=== PATIENT | male | born 1955 | race Caucasian/White ===

== ENCOUNTER 2018-04-23 14:23 | Emergency (ER) | payer OTHER, SELFPAY ==
[2018-04-23] VITALS (10 sets, daily range): BP systolic 123–149; BP diastolic 64–108; PULSE 50–67; RESP 8–24; TEMP 36.4; O2SAT 92–100; BMI 30.8
--- NOTE | 2018-04-23 14:36 | ED_ITS ---
HPI - Chest Pain <Devonte Barnes MD - Last Filed: 04/24/18 07:11> General Chief Complaint: Chest Pain Stated Complaint: CHEST PAIN Time Seen by Provider: 04/23/18 14:28 Source: patient and EMS Mode of arrival: EMS Limitations: no limitations History of Present Illness HPI narrative: 63 M hx DM 2 had sudden onset L side sharp chest pain radiating to L arm with associated SOB and Lightheadedness after hearing of a friend's today. Had rough coughing episode which caused sharp pain in his chest and R groin. No cardiac history. Given ASA, morphine, nitro by EMS with no signficiant relief. There is a signficant anxiety component causing hyperventilation and distress. No recent illness, fever, chills, swelling, urinary complaints. Patient states its been a long time since his last stress test. PCP Dr. Shemar Leigh Related Data Home Medications Medication Instructions Recorded Confirmed CA PANTOTHENATE/FOLIC ACID/VIT 1 tab PO QDAY #0 06/26/13 (MULTIVITAMIN) [epclusa] #0 02/01/17 prazosin 3 mg PO HS #0 02/01/17 diazepam 5 mg PO PRN PRN #0 05/13/17 lorazepam [Ativan] 2 mg PO PRN PRN #0 05/13/17 meloxicam 7.5 - 15 mg PO QDAY #0 05/13/17 omeprazole 20 mg PO QDAY #0 05/13/17 ribavirin 200 mg PO HS #0 05/13/17 ribavirin 400 mg PO QDAY #0 05/13/17 tizanidine 2 mg PO #0 05/13/17 Previous Rx's Medication Instructions Recorded fentanyl 25 mcg TOPICAL Q72H #10 patch 02/02/17 loperamide 0 mg PO SEE INSTRUCTIONS #20 cap 05/13/17 ondansetron [Zofran ODT] 4 mg SUBLINGUAL Q6HP PRN #10 odt 05/13/17 hydromorphone [Dilaudid] 2 mg PO Q6HP PRN #10 tab 09/20/17 Allergies Allergy/AdvReac Type Severity Reaction Status Date / Time hydrocodone [From VICODIN] Allergy Unknown Verified 04/23/18 15:54 iodine [IODINE] Allergy Unknown Verified 04/23/18 15:54 acetaminophen [From VICODIN] AdvReac Unknown Verified 04/23/18 15:54 Review of Systems <Devonte Barnes MD - Last Filed: 04/24/18 07:11> Constitutional Denies chills, Denies fever(s), Denies lethargy and Denies weakness Eyes Denies change in vision, Denies eye discharge, Denies irritation and Denies loss of vision Cardiovascular Reports chest pain, Denies irregular heart rhythm, Reports lightheadedness, Denies palpitations, Denies dyspnea, Denies dyspnea on exertion and Denies orthopnea Respiratory Reports cough, Denies dyspnea, Denies dyspnea on exertion and Denies wheezing Gastrointestinal Gastrointestinal: Denies abdominal pain, Denies change in bowel habits, Denies diarrhea, Denies nausea and Denies vomiting Genitourinary Denies hematuria, Denies flank pain, Denies urinary incontinence and Denies urinary urgency Musculoskeletal Denies back pain, Denies muscle weakness, Denies numbness and Denies tingling Neurologic Denies loss of vision, Denies numbness, Denies tingling and Denies weakness Endocrine Denies palpitations Hematologic/Lymphatic Denies easy bruising Allergic/Immunologic Denies wheezing Exam <Devonte Barnes MD - Last Filed: 04/24/18 07:11> Initial Vital Signs Initial Vital Signs: Vital Signs Temperature 97.5 F L 04/23/18 14:35 Pulse Rate 67 04/23/18 14:35 Respiratory Rate 15 04/23/18 14:35 Blood Pressure 138/108 H 04/23/18 14:35 Pulse Oximetry 97 04/23/18 14:35 Const General: in distress and anxious Nutritional Appearance: overweight Orientation: alert, awake and oriented x3 [facility] Head: normocephalic and atraumatic Ears: external ears normal and TM's normal bilaterally Nose: external nose normal and No nasal discharge Face and sinus: sinuses nontender, face symmetric, no sinus tenderness and No dry mucous membranes Mouth: oral mucosae normal and moist mucous membranes Teeth and gingiva: dentition normal Throat: tonsils normal and uvula midline Neck Neck: normal visual inspection, trachea midline, No lymphadenopathy, No midline deformity and No JVD Lymphatic: No lymphedema Resp Effort & Inspection: normal respiratory effort, able to speak in complete sentences, no respiratory distress and no use of accessory muscles Auscultation: clear to auscultation bilaterally, no rales, no rhonchi and no wheezes Cardio Rate: regular rate Rhythm: regular rhythm Heart Sounds: no click, no gallops, no murmurs and no rubs Pulses: normal peripheral pulses GI Inspection: non-distended Palpation: soft, no hepatosplenomegaly, No guarding, No pulsatile mass and tender (R groin tenderness. No mass or hernia defect felt.) Auscultation: normal bowel sounds Skin General: no rashes or lesions noted, No jaundice and No petechiae Neuro General: alert, oriented x3, gait normal and no focal motor deficits Speech: speech normal Extrem General: full ROM, no clubbing, cyanosis or edema, no pedal edema and no calf tenderness <Jose D Hutchinson DO - Last Filed: 04/23/18 21:24> Initial Vital Signs Initial Vital Signs: Vital Signs Temperature 97.5 F L 04/23/18 14:35 Pulse Rate 67 04/23/18 14:35 Respiratory Rate 15 04/23/18 14:35 Blood Pressure 138/108 H 04/23/18 14:35 Pulse Oximetry 97 04/23/18 14:35 Course <Devonte Barnes MD - Last Filed: 04/24/18 07:11> Orders Ordered: Discontinued Medications Hydromorphone HCl (Dilaudid) 1 mg IV NOW ONE Stop: 04/23/18 20:22 Last Admin: 04/23/18 20:31 Dose: 1 mg Sodium Chloride (Normal Saline 0.9%) 1,000 mls @ 150 mls/hr IV CONT KERVIN Last Infusion: 04/23/18 18:55 Dose: 0 mls/hr Admin: 04/23/18 15:15 Dose: 150 mls/hr Ketorolac Tromethamine (Toradol) 30 mg IV NOW ONE Stop: 04/23/18 16:55 Last Admin: 04/23/18 17:13 Dose: 30 mg Lorazepam (Ativan) 0.5 mg IV NOW ONE Stop: 04/23/18 14:35 Last Admin: 04/23/18 15:14 Dose: 0.5 mg Lorazepam (Ativan) 1 mg IV NOW ONE Stop: 04/23/18 16:54 Last Admin: 04/23/18 17:13 Dose: 1 mg Morphine Sulfate (Morphine) 6 mg IV NOW ONE Stop: 04/23/18 14:51 Last Admin: 04/23/18 15:23 Dose: 6 mg Morphine Sulfate (Morphine) 6 mg IV NOW ONE Stop: 04/23/18 15:23 Last Admin: 04/23/18 17:17 Dose: Morphine Sulfate (Morphine) 6 mg IV NOW ONE Stop: 04/23/18 16:54 Last Admin: 04/23/18 17:14 Dose: 6 mg Ondansetron HCl (Zofran) 4 mg IV NOW ONE Stop: 04/23/18 14:35 Last Admin: 04/23/18 15:14 Dose: 4 mg Vital Signs - 8 hr 04/23/18 14:35 04/23/18 14:58 04/23/18 15:06 Temperature 97.5 F L Pulse Rate 67 61 Respiratory Rate 15 19 Blood Pressure 138/108 H Blood Pressure [Left Arm] 145/71 H Blood Pressure [Right Arm] 132/69 H Pulse Oximetry 97 97 04/23/18 16:04 04/23/18 16:30 04/23/18 17:44 Temperature Pulse Rate 62 64 50 L Respiratory Rate 24 22 9 L Blood Pressure Blood Pressure [Left Arm] Blood Pressure [Right Arm] 123/64 H 137/71 H 132/82 H Pulse Oximetry 97 99 92 04/23/18 18:03 04/23/18 19:00 04/23/18 20:00 Temperature Pulse Rate 54 L 53 L 52 L Respiratory Rate 8 L 14 10 L Blood Pressure Blood Pressure [Left Arm] Blood Pressure [Right Arm] 136/74 H 144/85 H 147/82 H Pulse Oximetry 96 99 100 04/23/18 20:44 Temperature Pulse Rate 59 L Respiratory Rate 15 Blood Pressure 149/84 H Blood Pressure [Left Arm] Blood Pressure [Right Arm] Pulse Oximetry 99 <Jose D Hutchinson DO - Last Filed: 04/23/18 21:24> Orders Ordered: Discontinued Medications Hydromorphone HCl (Dilaudid) 1 mg IV NOW ONE Stop: 04/23/18 20:22 Last Admin: 04/23/18 20:31 Dose: 1 mg Sodium Chloride (Normal Saline 0.9%) 1,000 mls @ 150 mls/hr IV CONT KERVIN Last Infusion: 04/23/18 18:55 Dose: 0 mls/hr Admin: 04/23/18 15:15 Dose: 150 mls/hr Ketorolac Tromethamine (Toradol) 30 mg IV NOW ONE Stop: 04/23/18 16:55 Last Admin: 04/23/18 17:13 Dose: 30 mg Lorazepam (Ativan) 0.5 mg IV NOW ONE Stop: 04/23/18 14:35 Last Admin: 04/23/18 15:14 Dose: 0.5 mg Lorazepam (Ativan) 1 mg IV NOW ONE Stop: 04/23/18 16:54 Last Admin: 04/23/18 17:13 Dose: 1 mg Morphine Sulfate (Morphine) 6 mg IV NOW ONE Stop: 04/23/18 14:51 Last Admin: 04/23/18 15:23 Dose: 6 mg Morphine Sulfate (Morphine) 6 mg IV NOW ONE Stop: 04/23/18 15:23 Last Admin: 04/23/18 17:17 Dose: Morphine Sulfate (Morphine) 6 mg IV NOW ONE Stop: 04/23/18 16:54 Last Admin: 04/23/18 17:14 Dose: 6 mg Ondansetron HCl (Zofran) 4 mg IV NOW ONE Stop: 04/23/18 14:35 Last Admin: 04/23/18 15:14 Dose: 4 mg Reevaluation(s) Reevaluation #1: Patient interviewed and examined by myself independently and I agree with Dr. Barnes's assessment and plan. Multiple troponins are negative 7 hours in and EKG shows no signs of ischemia. Regarding RLQ pain CT Abd/Pelvis was unremarkable. One final EKG to be obtained prior to DC Time: 20:26 Vital Signs - 8 hr 04/23/18 14:35 04/23/18 14:58 04/23/18 15:06 Temperature 97.5 F L Pulse Rate 67 61 Respiratory Rate 15 19 Blood Pressure 138/108 H Blood Pressure [Left Arm] 145/71 H Blood Pressure [Right Arm] 132/69 H Pulse Oximetry 97 97 04/23/18 16:04 04/23/18 16:30 04/23/18 17:44 Temperature Pulse Rate 62 64 50 L Respiratory Rate 24 22 9 L Blood Pressure Blood Pressure [Left Arm] Blood Pressure [Right Arm] 123/64 H 137/71 H 132/82 H Pulse Oximetry 97 99 92 04/23/18 18:03 04/23/18 19:00 04/23/18 20:00 Temperature Pulse Rate 54 L 53 L 52 L Respiratory Rate 8 L 14 10 L Blood Pressure Blood Pressure [Left Arm] Blood Pressure [Right Arm] 136/74 H 144/85 H 147/82 H Pulse Oximetry 96 99 100 04/23/18 20:44 Temperature Pulse Rate 59 L Respiratory Rate 15 Blood Pressure 149/84 H Blood Pressure [Left Arm] Blood Pressure [Right Arm] Pulse Oximetry 99 MDM - Chest Pain <Devonte Barnes MD - Last Filed: 04/24/18 07:11> Lab Data Result diagrams: 04/23/18 Unknown 04/23/18 Unknown Lab Results 04/23/18 04/23/18 04/23/18 Range/Units 17:55 Unknown Unknown WBC 6.7 (4.5-11.0) X10^3/uL RBC 4.21 L (4.5-5.9) X10^6/uL Hgb 13.3 L (13.5-17.5) g/dL Hct 38.8 L (41-53) % MCV 92.1 (80-100) fL MCH 31.6 (26-34) PG MCHC 34.3 (30-36) % RDW 14.5 (11.6-14.8) % Plt Count 127 L (150-400) X10^3/uL Neut % (Auto) 45.7 L (50-75) % Lymph % (Auto) 44.3 H (25-40) % Hudson % (Auto) 8.7 (3-14) % Eos % (Auto) 0.9 L (2-4) % Baso % (Auto) 0.4 (0-2) % Neut # (Auto) 3100 (4837-9536) /uL Sodium 143 (137-145) mmol/L Potassium 3.9 (3.4-5.1) mmol/L Chloride 107.0 (98-107) mmol/L Carbon Dioxide 21.0 L (22-32) mmol/L BUN 19.0 (9-20) mg/dL Creatinine 0.90 (0.66-1.25) mg/dL Estimated GFR > 60.0 (>60) mL/min BUN/Creatinine Ratio 21.1 (6-22) Glucose 107 (80-110) mg/dL Calcium 9.1 (8.4-10.2) mg/dL Total Bilirubin 0.7 (0.2-1.3) mg/dL AST 26 (17-59) IU/L ALT 25 (21-72) IU/L Alkaline Phosphatase 49 (38-126) U/L Total Creatine Kinase 107 119 (55-170) U/L CK-MB (CK-2) 0.90 0.86 (<2.37) ng/mL CK-MB (CK-2) Rel Index 0.8 L 0.7 L (1.5-5.0) % Troponin I < 0.012 < 0.012 (0.01-0.034) ng/mL Total Protein 7.8 (6.3-8.2) g/dL Albumin 4.5 (3.5-5.0) g/dL Globulin 3.3 (1.7-4.1) g/dL Albumin/Globulin Ratio 1.4 (1.0-2.8) Lipase 81 (23-300) U/L Imaging Data Chest x-ray: Radiologist's impression: Patient: Armin Martinez WMR#: [id number] : 7Acct:[id number] Age/Sex: 63 / MDate of Service: 04/23/18 Loc: ED Accession Number: [id number] Procedure: XR chest 2V Ordering Provider: Devonte Barnes M.D. PROCEDURE: XR CHEST 2V INDICATIONS: chest pain TECHNIQUE: 2 views of the chest were acquired. COMPARISON: [facility], CHEST 1 VIEW, 08/28/2015, 4:19. [facility], CHEST 1 VIEW, 02/01/2017, 9:20. FINDINGS: Surgical changes and devices: None. Lungs and pleura: No pleural effusions or pneumothorax. Lungs are clear. Mediastinum: Mediastinal contours are normal. Heart size is normal. Bones and chest wall: No suspicious bony abnormalities. Soft tissues appear unremarkable. IMPRESSION: No acute cardiopulmonary disease process. Dictated by: Yumiko Munoz MD, PhD on 04/23/2018 at 13:56 Approved by: Yumiko Munoz MD, PhD on 04/23/2018 at 13:57 ECG Data Interpretation: Sinus rhythm HR [address]/Tw changes No ectopy IL intervals WNL MDM Narrative Medical decision making narrative: Patient distraught, and clutching chest complaining of sharp chest pain. Given multiple doses of morphine and ativan in ED. Patient responds to medications and then returns to being in distress requiring repeat dosing. Troponins negative x2 without EKG changes. For the duration of patient's complaints, there would likely have been an elevation in cardiac enzymes if pain were cardiac related. His inguinal pain may be a tear, but there is no bowel felt in a hernia defect, and there is low suspicion for any requirement for urgent intervention. Imaging is pending. Case was discussed with Dr. Hutchinson. <Jose D Hutchinson, DO - Last Filed: 04/23/18 21:24> Differential Diagnosis Likely pneumothorax, stable angina, unstable angina pectoris, atypical chest pain, st elevation myocardial infarction, costochondritis and chest pain Medical Records Data Attestation: I reviewed the patient's medical records. Lab Data Attestation: I reviewed the patient's lab results. Lab Results 04/23/18 04/23/18 04/23/18 Range/Units 17:55 Unknown Unknown WBC 6.7 (4.5-11.0) X10^3/uL RBC 4.21 L (4.5-5.9) X10^6/uL Hgb 13.3 L (13.5-17.5) g/dL Hct 38.8 L (41-53) % MCV 92.1 (80-100) fL MCH 31.6 (26-34) PG MCHC 34.3 (30-36) % RDW 14.5 (11.6-14.8) % Plt Count 127 L (150-400) X10^3/uL Neut % (Auto) 45.7 L (50-75) % Lymph % (Auto) 44.3 H (25-40) % Hudson % (Auto) 8.7 (3-14) % Eos % (Auto) 0.9 L (2-4) % Baso % (Auto) 0.4 (0-2) % Neut # (Auto) 3100 (2956-0553) /uL Sodium 143 (137-145) mmol/L Potassium 3.9 (3.4-5.1) mmol/L Chloride 107.0 (98-107) mmol/L Carbon Dioxide 21.0 L (22-32) mmol/L BUN 19.0 (9-20) mg/dL Creatinine 0.90 (0.66-1.25) mg/dL Estimated GFR > 60.0 (>60) mL/min BUN/Creatinine Ratio 21.1 (6-22) Glucose 107 (80-110) mg/dL Calcium 9.1 (8.4-10.2) mg/dL Total Bilirubin 0.7 (0.2-1.3) mg/dL AST 26 (17-59) IU/L ALT 25 (21-72) IU/L Alkaline Phosphatase 49 (38-126) U/L Total Creatine Kinase 107 119 (55-170) U/L CK-MB (CK-2) 0.90 0.86 (<2.37) ng/mL CK-MB (CK-2) Rel Index 0.8 L 0.7 L (1.5-5.0) % Troponin I < 0.012 < 0.012 (0.01-0.034) ng/mL Total Protein 7.8 (6.3-8.2) g/dL Albumin 4.5 (3.5-5.0) g/dL Globulin 3.3 (1.7-4.1) g/dL Albumin/Globulin Ratio 1.4 (1.0-2.8) Lipase 81 (23-300) U/L Imaging Data CT scan - abdomen: Radiologist's impression: PROCEDURE: CT ABDOMEN PELVIS W CON INDICATIONS: RLQ/pelvic pain TECHNIQUE: After the administration of oral and intravenous contrast, 5 mm thick sections acquired from the diaphragms to the symphysis. 5 mm thick coronal and sagittal reformats were performed. For radiation dose reduction, the following was used: automated exposure control, adjustment of mA and/or kV according to patient size. COMPARISON: [facility], CT, ABDOMEN/PELVIS WITH CONTRAST, 05/13/2017, 13: 25. FINDINGS: Image quality: Excellent. ABDOMEN: Lung bases: There is mild dependent atelectasis. Heart size is normal. Solid organs: Liver is normal in size and enhancement. Gallbladder appears within normal limits without calcified gallstones. Biliary system is non-dilated. Pancreas enhances normally. Spleen is normal in size and enhancement. No adrenal nodules. Kidneys demonstrate no hydronephrosis. There is a left renal cortical cyst within the inferior pole. A small peripheral hypodensity is redemonstrated within the inferior pole of the right kidney which is too small to characterize but likely represents a cyst. Peritoneum and bowel: Stomach, small bowel, and colon loops are normal in caliber and wall thickness. The appendix is normal in appearance. There is colonic diverticulosis without acute diverticulitis. No free fluid or air. Nodes and vessels: No retroperitoneal or mesenteric adenopathy. Aorta and inferior vena cava are normal in caliber. Miscellaneous: No ventral hernias. PELVIS: Genitourinary: There is mild concentric wall thickening of an incompletely distended urinary bladder. Miscellaneous: No inguinal hernias or adenopathy. Bones: No suspicious bony lesions. No vertebral body compression fractures. IMPRESSION: 1. No definite acute intra-abdominal abnormality to correlate with patient's right lower quadrant pain. Specifically, no evidence of appendicitis. 2. Diverticulosis without acute diverticulitis. Dictated by: Sarwat Gaston M.D. on 04/23/2018 at 20:02 Approved by: Sarwat Gaston M.D. on 04/23/2018 at 20:05 ECG Data Attestation: I personally reviewed and interpreted this ECG as follows: Prior ECG tracings: available for review Interpretation: Repeat EKG 2030 normal sinus rhythm (slightly bradycardic) with a rate of 54. No ST segmental elevation or depression, no T-wave abnormalities MDM Narrative Medical decision making narrative: Patient presents with sharp and stabbing left -sided chest pain after receiving bad news regarding a friend's untimely . He admittedly is quite anxious and complains of rapid breathing and anxiety. He has no cardiac history. He has had multiple troponins as well as repeat EKGs showing no suggestion ischemia. Imaging was negative for is groin pain Discharge Plan Departure Patient Disposition: Home, Self-Care Clinical Impression: Deep groin pain, Atypical chest pain Discharge Date/Time: 04/23/18 20:52 Interventions: ED Discharge Assessment Last Done: 04/23/18 20:44 Instructions: DI for Atypical Chest Pain Activity Restrictions/Additional Instructions: There is no evidence of an emergent or life threatening illness at this time, but follow up with your doctor in 1-2 days is recommended nonetheless to continue to rule out serious underlying causes of your symptoms. Please call the office for an appointment. Please return to the Emergency Department for any worsening or persistent symptoms. Please continue to take medications as directed. Prescriptions: No Action CA PANTOTHENATE/FOLIC ACID/VIT (MULTIVITAMIN) 1 tab PO QDAY Qty: 0 RF: 0 [epclusa] Qty: 0 RF: 0 prazosin 1 MG capsule 3 mg PO HS Qty: 0 RF: 0 fentanyl 25 MCG/HR patch 72 hour 25 mcg Topical Q72H Qty: 10 RF: 0 ribavirin 200 MG capsule 200 mg PO HS Qty: 0 RF: 0 ribavirin 200 MG capsule 400 mg PO QDAY Qty: 0 RF: 0 tizanidine 2 MG tablet 2 mg PO Qty: 0 RF: 0 omeprazole 20 MG capsule,delayed release(DR/EC) 20 mg PO QDAY Qty: 0 RF: 0 lorazepam [Ativan] 2 MG tablet 2 mg PO PRN PRNQty: 0 RF: 0 diazepam 5 MG tablet 5 mg PO PRN PRNQty: 0 RF: 0 meloxicam 15 MG tablet 7.5 - 15 mg PO QDAY Qty: 0 RF: 0 ondansetron [Zofran ODT] 4 MG tablet,disintegrating 4 mg Sublingual Q6HP PRNQty: 10 RF: 0 loperamide 2 MG capsule PO SEE INSTRUCTIONS Qty: 20 RF: 0 hydromorphone [Dilaudid] 2 MG tablet 2 mg PO Q6HP PRNQty: 10 RF: 0
[2018-04-23 14:40] LABS: Add Manual Diff / Slide Review NO; Basophils Percent Auto 0.4 % (0-2); Eosinophils Percent Auto 0.9 % (2-4); Hematocrit 38.8 % (41-53); Hemoglobin 13.3 g/dL (13.5-17.5); Lymphocytes Percent Auto 44.3 % (25-40); Mean Corpuscular HGB Conc 34.3 % (30-36); Mean Corpuscular Hemoglobin 31.6 PG (26-34); Mean Corpuscular Volume 92.1 fL (80-100); Monocytes Percent Auto 8.7 % (3-14); Neutrophils Absolute Auto 3100 /uL (3000-5900); Neutrophils Percent Auto 45.7 % (50-75); Platelet Count 127 X10^3/uL (150-400); Red Blood Cell Count 4.21 X10^6/uL (4.5-5.9); Red Cell Distribution Width 14.5 % (11.6-14.8); White Blood Cell Count 6.7 X10^3/uL (4.5-11.0)
[2018-04-23 14:53] LABS: Alanine Aminotransferase 25 IU/L (21-72); Albumin 4.5 g/dL (3.5-5.0); Albumin Globulin Ratio 1.4 (1.0-2.8); Alkaline Phosphatase 49 U/L (38-126); Aspartate Aminotransferase 26 IU/L (17-59); BUN Creatinine Ratio 21.1 (6-22); Bilirubin Total 0.7 mg/dL (0.2-1.3); Calcium 9.1 mg/dL (8.4-10.2); Creatine Kinase 119 U/L (55-170); Estimated Glomerular Filt Rate > 60.0 mL/min (>60); Globulin 3.3 g/dL (1.7-4.1); Glucose 107 mg/dL (80-110); HEMOLYSIS < 15 (0-50); Lipase 81 U/L (23-300); Potassium 3.9 mmol/L (3.4-5.1); Sodium 143 mmol/L (137-145); Total Protein 7.8 g/dL (6.3-8.2)
[2018-04-23 15:05] LABS: Troponin I < 0.012 ng/mL (0.01-0.034)
[2018-04-23 15:09] LABS: CKMB % Relative Index 0.7 % (1.5-5.0); Creatine Kinase MB 0.86 ng/mL (<2.37)
[2018-04-23] MEDS: ONDANSETRON 4 MG/2 ML INJ IV (15:14)
[2018-04-23] MEDS: LORazepam 2 MG/ML SYRINGE 0.5 MG IV (15:14)
[2018-04-23] MEDS: SODIUM CHLORIDE 0.9% 1,000 ML 150 ML IV (15:15)
[2018-04-23] MEDS: MORPHINE 10 MG/ML INJ 6 MG IV ×2 (15:23→17:14)
[2018-04-23] MEDS: LORazepam 2 MG/ML SYRINGE 1 MG IV (17:13)
[2018-04-23] MEDS: KETOROLAC 60 MG/2 ML VIAL 30 MG IV (17:13)
--- NOTE | 2018-04-23 18:10 | DI.CT.S_ITS ---
PROCEDURE: CT ABDOMEN PELVIS W CON INDICATIONS: RLQ/pelvic pain TECHNIQUE: After the administration of oral and intravenous contrast, 5 mm thick sections acquired from the diaphragms to the symphysis. 5 mm thick coronal and sagittal reformats were performed. For radiation dose reduction, the following was used: automated exposure control, adjustment of mA and/or kV according to patient size. COMPARISON: [facility], CT, ABDOMEN/PELVIS WITH CONTRAST, 05/13/2017, 13:25. FINDINGS: Image quality: Excellent. ABDOMEN: Lung bases: There is mild dependent atelectasis. Heart size is normal. Solid organs: Liver is normal in size and enhancement. Gallbladder appears within normal limits without calcified gallstones. Biliary system is non-dilated. Pancreas enhances normally. Spleen is normal in size and enhancement. No adrenal nodules. Kidneys demonstrate no hydronephrosis. There is a left renal cortical cyst within the inferior pole. A small peripheral hypodensity is redemonstrated within the inferior pole of the right kidney which is too small to characterize but likely represents a cyst. Peritoneum and bowel: Stomach, small bowel, and colon loops are normal in caliber and wall thickness. The appendix is normal in appearance. There is colonic diverticulosis without acute diverticulitis. No free fluid or air. Nodes and vessels: No retroperitoneal or mesenteric adenopathy. Aorta and inferior vena cava are normal in caliber. Miscellaneous: No ventral hernias. PELVIS: Genitourinary: There is mild concentric wall thickening of an incompletely distended urinary bladder. Miscellaneous: No inguinal hernias or adenopathy. Bones: No suspicious bony lesions. No vertebral body compression fractures. IMPRESSION: 1. No definite acute intra-abdominal abnormality to correlate with patient's right lower quadrant pain. Specifically, no evidence of appendicitis. 2. Diverticulosis without acute diverticulitis. Dictated by: Sarwat Gaston M.D. on 04/23/2018 at 20:02 Approved by: Sarwat Gaston M.D. on 04/23/2018 at 20:05
[2018-04-23 18:13] LABS: Creatine Kinase 107 U/L (55-170)
[2018-04-23 18:26] LABS: Troponin I < 0.012 ng/mL (0.01-0.034)
[2018-04-23 18:35] LABS: CKMB % Relative Index 0.8 % (1.5-5.0)
--- NOTE | 2018-04-23 19:16 | PC.NURSE ---
Pt is resting peacefully on stretcher after being medicated with ketorolac, morphine, and ativan. He states he is feeling much better and that the medications worked well.
--- NOTE | 2018-04-23 19:20 | PC.NURSE ---
1805 Pt respiratory rate at 8 breaths per minute. Placed on 2L oxygen nasal cannula and elevated head of bed. Pt appears to have been sleeping. Oxygen sat at 97% now and breathing 12-14 breaths per minute.
--- NOTE | 2018-04-23 20:08 | PC.NURSE ---
Dr Hutchinson aware of pts pain.
[2018-04-23] MEDS: HYDROMORPHONE 1 MG INJ IV (20:31)
== END 2018-04-23 20:52 | disposition home or self-care (01) ==
PROVIDERS: Student in an Organized Health Care Education/Training Program; Emergency Provider Emergency Medicine; Family Provider Family Medicine; PCP Family Medicine
DX: R10.9 Unspecified abdominal pain (principal); R07.89 Other chest pain
CPT/HCPCS: 36415; 71046; 74177; 80053; 81003; 82550; 82553; 83690; 84484; 85025; 93005; 96361; 96374; 96375; 96376; 99284; 99285; J1170; J1885; J2060; J2270; J2405; Q9967

== ENCOUNTER 2018-04-29 15:47 | Emergency (ER) | payer OTHER, SELFPAY ==
[2018-04-29 16:03] VITALS: BP 141/91; PULSE 68; RESP 20; TEMP 36.2; O2SAT 96; BMI 30.2
--- NOTE | 2018-04-29 16:45 | ED_ITS ---
HPI - Abdominal Pain General Chief Complaint: Abdominal Pain Stated Complaint: ABDOMINAL AND BACK PAINS, THINKS ITS HIS LIVER Time Seen by Provider: 04/29/18 16:44 Source: patient Mode of arrival: ambulatory Limitations: no limitations History of Present Illness HPI narrative: Patient is a 63-year-old male who presents with abdominal pain. He has actually had ongoing right upper quadrant pain for the past 2-3 months and he had lower abdominal pain for the past 2-3 weeks. In fact he was seen here and evaluated last week on 04/23/[address] he had abdominal CT which was negative. He says his pain is worse. He is taking Dilaudid at home without any relief. He sits a lot for work which he thinks may be exacerbating his lower abdominal pain. He is having normal bowel movements he feels nauseated at times but no real vomiting. On April 23 she was evaluated for chest pain he had an x-ray EKG and troponins or trauma negative. Today it seems to be more lower abdominal pain and right upper quadrant. MD complaint: abdominal pain Onset (ago): week(s) Related Data Home Medications Medication Instructions Recorded Confirmed prazosin 3 mg PO HS #0 02/01/17 04/29/18 lorazepam [Ativan] 2 mg PO PRN PRN #0 05/13/17 04/29/18 meloxicam 7.5 - 15 mg PO QDAY PRN #0 05/13/17 04/29/18 omeprazole 20 mg PO QDAY #0 05/13/17 04/29/18 tizanidine 1 dose PO DIRECTED PRN #0 05/13/17 04/29/18 hydromorphone [Dilaudid] 2 mg PO Q6HP PRN 04/29/18 04/29/18 loperamide 0 mg PO SEE INSTRUCTIONS PRN 04/29/18 04/29/18 metformin 1,000 mg PO BID 04/29/18 04/29/18 ondansetron [Zofran ODT] 4 mg SUBLINGUAL Q6HP PRN 04/29/18 04/29/18 Previous Rx's Medication Instructions Recorded ondansetron [Zofran ODT] 4 mg PO Q6H PRN #10 tab 04/29/18 Allergies Allergy/AdvReac Type Severity Reaction Status Date / Time hydrocodone [From VICODIN] Allergy Unknown Verified 04/29/18 16:03 iodine [IODINE] Allergy Unknown Verified 04/23/18 15:54 acetaminophen [From VICODIN] AdvReac Unknown Verified 04/23/18 15:54 Review of Systems Review of Systems All systems reviewed & are unremarkable except as noted in HPI and below PFSH Social History Smoking Status: Never smoker Exam Initial Vital Signs Initial Vital Signs: Vital Signs Temperature 97.1 F L 04/29/18 16:03 Pulse Rate 68 04/29/18 16:03 Respiratory Rate 20 04/29/18 16:03 Blood Pressure 141/91 H 04/29/18 16:03 Pulse Oximetry 96 04/29/18 16:03 GENERAL: Well-appearing, well-nourished and in no acute distress. HEENT: Head atraumatic,EOMI, pupils reactive, face symmetric CARDIOVASCULAR: Regular rate and rhythm without murmurs, rubs or gallops. RESPIRATORY: Breath sounds equal bilaterally, no wheezes rales or rhonchi. ABDOMEN: Soft, mild right upper quadrant pain no guarding no rebound negative Cr sign off diffuse lower abdominal pain no guarding or rebound slightly more tender on the right than the left. : No CVA tenderness EXTREMITIES: Normal range of motion, no clubbing or edema. Neurovascularly intact NEUROLOGICAL: Alert and oriented x4.Normal gait and speech. Cranial nerves II through XII grossly intact. SKIN: Warm, dry, no laceration, no petechiae, no rashes or lesions. Course Orders Ordered: ED Orders 04/29/18 16:55 Complete Blood Count AUTO DIFF Stat Comprehensive Metabolic Panel Stat Lipase Stat 04/29/18 16:59 US abdomen limited Stat 04/29/18 17:52 XR abdomen min 2V Stat Sodium Chloride (Normal Saline 0.9%) 1,000 mls @ 150 mls/hr IV CONT KERVIN Last Infusion: 04/29/18 18:35 Dose: 0 mls/hr Admin: 04/29/18 17:01 Dose: 150 mls/hr Discontinued Medications Lorazepam (Ativan) 0.5 mg IV NOW ONE Stop: 04/29/18 17:57 Last Admin: 04/29/18 18:01 Dose: 0.5 mg Morphine Sulfate (Morphine) 4 mg IV NOW ONE Stop: 04/29/18 16:59 Last Admin: 04/29/18 17:01 Dose: 4 mg Ondansetron HCl (Zofran) 4 mg IV NOW ONE Stop: 04/29/18 16:59 Last Admin: 04/29/18 17:01 Dose: 4 mg Vital Signs - 8 hr 04/29/18 16:03 Temperature 97.1 F L Pulse Rate 68 Respiratory Rate 20 Blood Pressure 141/91 H Pulse Oximetry 96 MDM - Abdominal Pain Medical Records Attestation: I reviewed the patient's medical records. Lab Data Attestation: I reviewed the patient's lab results. Result diagrams: 04/29/18 16:55 04/29/18 16:55 Lab Results 04/29/18 04/29/18 Range/Units 16:55 16:55 WBC 7.4 (4.5-11.0) X10^3/uL RBC 4.76 (4.5-5.9) X10^6/uL Hgb 14.8 (13.5-17.5) g/dL Hct 43.7 (41-53) % MCV 91.7 (80-100) fL MCH 31.1 (26-34) PG MCHC 33.9 (30-36) % RDW 14.4 (11.6-14.8) % Plt Count 135 L (150-400) X10^3/uL Neut % (Auto) 53.8 (50-75) % Lymph % (Auto) 36.9 (25-40) % [place] % (Auto) 8.2 (3-14) % Eos % (Auto) 0.7 L (2-4) % Baso % (Auto) 0.4 (0-2) % Neut # (Auto) 4000 (6388-6552) /uL Sodium 139 (137-145) mmol/L Potassium 4.0 (3.4-5.1) mmol/L Chloride 101 (98-107) mmol/L Carbon Dioxide 25 (22-32) mmol/L BUN 14 (9-20) mg/dL Creatinine 0.80 (0.66-1.25) mg/dL Estimated GFR > 60.0 (>60) mL/min BUN/Creatinine Ratio 17.5 (6-22) Glucose 108 (80-110) mg/dL Calcium 9.4 (8.4-10.2) mg/dL Total Bilirubin 0.9 (0.2-1.3) mg/dL AST 31 (17-59) IU/L ALT 31 (21-72) IU/L Alkaline Phosphatase 52 (38-126) U/L Total Protein 8.2 (6.3-8.2) g/dL Albumin 4.6 (3.5-5.0) g/dL Globulin 3.6 (1.7-4.1) g/dL Albumin/Globulin Ratio 1.3 (1.0-2.8) Lipase 73 (23-300) U/L Imaging Data Abdominal x-ray: Radiologist's impression: PROCEDURE: XR ABDOMEN MIN 2V INDICATIONS: abdominal pain, right sided TECHNIQUE: 2 views of the abdomen were acquired. COMPARISON: [facility], US, US ABDOMEN LIMITED, 04/29/2018, 17:14. [facility], CT, CT ABDOMEN PELVIS W CON, 04/23/2018, 18:44. FINDINGS: Surgical changes and devices: None. Bowel: No pneumoperitoneum. The bowel gas pattern is normal. Soft tissues: No masses; visualized solid organ contours appear normal in size. No suspicious abdominal calcifications. Bones: No suspicious bony abnormalities. IMPRESSION: Nonspecific bowel gas pattern, no intestinal obstruction or perforation found. Several small bowel loops are mildly prominent at the left upper midabdomen, but these do not reach a size criteria for diagnosis of obstructive distention. For example, enteritis or ileus could produce that appearance. Dictated by: Nahun Kelley M.D. on 04/29/2018 at 18:27 Right upper quadrant ultrasound: Radiologist's impression: PROCEDURE: US ABDOMEN LIMITED INDICATIONS: RUQ pain TECHNIQUE: Real-time focused scanning was performed of the abdomen, with image documentation. COMPARISON: [facility], CT, CT ABDOMEN PELVIS W CON, 04/23/2018, 18:44. FINDINGS: No acute disease, source of current symptoms is not seen. IMPRESSION: No sign of cholecystitis or biliary abnormality. Pancreas is poorly visualized due to bowel gas. Dictated by: Nahun Kelley M.D. on 04/29/2018 at 17:32 Discharge Plan Departure Patient Disposition: Home, Self-Care Clinical Impression: Abdominal pain Instructions: DI for Abdominal Pain-Adult Activity Restrictions/Additional Instructions: *You have been diagnosed with abdominal pain *What to do: Recommend further evaluation with primary or a surgical referral. At this time blood work x-ray ultrasound are within normal limits but they do show a lot of dye *Take medications as directed -he Zofran every 4-6 hours if needed for nausea or vomiting *Follow up with your primary care provider in 2-3 days *Return to ER if you should have worsening pain, inability to tolerate fluids or any new, worsening or concerning symptoms Prescriptions: New ondansetron [Zofran ODT] 4 mg tablet,disintegrating 4 mg PO Q6H PRN (Reason: nausea and vomiting) Qty: 10 RF: 0 No Action prazosin 1 MG capsule 3 mg PO HS Qty: 0 RF: 0 tizanidine 2 MG tablet 1 dose PO DIRECTED PRN (Reason: Spasms) Qty: 0 RF: 0 omeprazole 20 MG capsule,delayed release(DR/EC) 20 mg PO QDAY Qty: 0 RF: 0 lorazepam [Ativan] 2 MG tablet 2 mg PO PRN PRN (Reason: Anxiety) Qty: 0 RF: 0 meloxicam 15 MG tablet 7.5 - 15 mg PO QDAY PRN (Reason: Inflammation) Qty: 0 RF: 0 metformin 1,000 mg tablet 1,000 mg PO BID RF: 0 loperamide 2 MG capsule PO SEE INSTRUCTIONS PRN (Reason: Diarrhea) RF: 0 hydromorphone [Dilaudid] 2 MG tablet 2 mg PO Q6HP PRN (Reason: Pain, Severe) RF: 0 ondansetron [Zofran ODT] 4 MG tablet,disintegrating 4 mg Sublingual Q6HP PRN (Reason: Nausea And Vomiting) RF: 0 Referrals: [facility] [Outside] Shemar Leigh MD [Primary Care Provider] -
--- NOTE | 2018-04-29 16:59 | DI.US.S_ITS ---
PROCEDURE: US ABDOMEN LIMITED INDICATIONS: RUQ pain TECHNIQUE: Real-time focused scanning was performed of the abdomen, with image documentation. COMPARISON: [facility], CT, CT ABDOMEN PELVIS W CON, 04/23/2018, 18:44. FINDINGS: No acute disease, source of current symptoms is not seen. IMPRESSION: No sign of cholecystitis or biliary abnormality. Pancreas is poorly visualized due to bowel gas. Dictated by: Nahun Kelley M.D. on 04/29/2018 at 17:32 Approved by: Nahun Kelley M.D. on 04/29/2018 at 17:33
[2018-04-29] MEDS: MORPHINE 4 MG/ML INJ IV (17:01)
[2018-04-29] MEDS: ONDANSETRON 4 MG/2 ML INJ IV (17:01)
[2018-04-29] MEDS: SODIUM CHLORIDE 0.9% 1,000 ML 150 ML IV (17:01)
[2018-04-29 17:11] LABS: Add Manual Diff / Slide Review NO; Basophils Percent Auto 0.4 % (0-2); Eosinophils Percent Auto 0.7 % (2-4); Hematocrit 43.7 % (41-53); Hemoglobin 14.8 g/dL (13.5-17.5); Lymphocytes Percent Auto 36.9 % (25-40); Mean Corpuscular HGB Conc 33.9 % (30-36); Mean Corpuscular Hemoglobin 31.1 PG (26-34); Mean Corpuscular Volume 91.7 fL (80-100); Monocytes Percent Auto 8.2 % (3-14); Neutrophils Absolute Auto 4000 /uL (3000-5900); Neutrophils Percent Auto 53.8 % (50-75); Platelet Count 135 X10^3/uL (150-400); Red Blood Cell Count 4.76 X10^6/uL (4.5-5.9); Red Cell Distribution Width 14.4 % (11.6-14.8); White Blood Cell Count 7.4 X10^3/uL (4.5-11.0)
[2018-04-29 17:34] LABS: Alanine Aminotransferase 31 IU/L (21-72); Albumin 4.6 g/dL (3.5-5.0); Albumin Globulin Ratio 1.3 (1.0-2.8); Alkaline Phosphatase 52 U/L (38-126); Aspartate Aminotransferase 31 IU/L (17-59); BUN Creatinine Ratio 17.5 (6-22); Bilirubin Total 0.9 mg/dL (0.2-1.3); Blood Urea Nitrogen 14 mg/dL (9-20); Calcium 9.4 mg/dL (8.4-10.2); Carbon Dioxide 25 mmol/L (22-32); Chloride 101 mmol/L (98-107); Estimated Glomerular Filt Rate > 60.0 mL/min (>60); Globulin 3.6 g/dL (1.7-4.1); Glucose 108 mg/dL (80-110); HEMOLYSIS 17 (0-50); Lipase 73 U/L (23-300); Sodium 139 mmol/L (137-145); Total Protein 8.2 g/dL (6.3-8.2)
--- NOTE | 2018-04-29 17:52 | DI.RAD.S_ITS ---
PROCEDURE: XR ABDOMEN MIN 2V INDICATIONS: abdominal pain, right sided TECHNIQUE: 2 views of the abdomen were acquired. COMPARISON: [facility], US, US ABDOMEN LIMITED, 04/29/2018, 17:14. [facility], CT, CT ABDOMEN PELVIS W CON, 04/23/2018, 18:44. FINDINGS: Surgical changes and devices: None. Bowel: No pneumoperitoneum. The bowel gas pattern is normal. Soft tissues: No masses; visualized solid organ contours appear normal in size. No suspicious abdominal calcifications. Bones: No suspicious bony abnormalities. IMPRESSION: Nonspecific bowel gas pattern, no intestinal obstruction or perforation found. Several small bowel loops are mildly prominent at the left upper midabdomen, but these do not reach a size criteria for diagnosis of obstructive distention. For example, enteritis or ileus could produce that appearance. Dictated by: Nahun Kelley M.D. on 04/29/2018 at 18:27 Approved by: Nahun Kelley M.D. on 04/29/2018 at 18:28
[2018-04-29] MEDS: LORazepam 2 MG/ML SYRINGE 0.5 MG IV (18:01)
== END 2018-04-29 19:15 | disposition home or self-care (01) ==
PROVIDERS: Emergency Provider Emergency Medicine; Family Provider Family Medicine; PCP Family Medicine
DX: R10.9 Unspecified abdominal pain (principal)
CPT/HCPCS: 36591; 74019; 76705; 80053; 81003; 83690; 85025; 93005; 96361; 96374; 96375; 99283; 99285; J2060; J2270; J2405

== ENCOUNTER → 2018-05-07 07:39 | Outpatient (CLI) | payer OTHER, SELFPAY ==
--- NOTE | 2018-05-07 | DI.NM.S_ITS ---
PROCEDURE: NM GASTRIC EMPTYING STUDY RADIOPHARMACEUTICAL: 1.0 mCi Tc-99m sulfur colloid in an egg sandwich. INDICATIONS: 63 year-old male with nausea. TECHNIQUE: A Tc-99m labeled sulfur colloid labeled egg sandwich or oatmeal was served to the patient. Anterior and posterior planar images of the abdomen were obtained at 0 minutes and 30 minutes, then at hourly intervals up to 4 hours. The patient was upright and ambulating during the interval. COMPARISON: None. FINDINGS: The stomach has normal size, morphology, and position. There is normal emptying of solid gastric contents from the stomach by visual inspection. No gastroesophageal reflux is visualized. The percentage of tracer retained at specific time points are as follows: Time point Percent gastric retention Normal range 30 minutes 65% 70% or more 1 hour 34% 30% to 90% 2 hours 12% 60% or less 3 hours 0% 30% or less 4 hours 0% 10% or less IMPRESSION: No scintigraphic explanation for nausea. Dictated by: Barry Ann M.D. on 05/07/2018 at 11:55 Approved by: Barry Ann M.D. on 05/07/2018 at 11:57
[2018-05-09 16:26] LABS: (tTG) Ab, IgA < 3 U/mL (< 4)
== END ==
PROVIDERS: PCP Family Medicine; Visit Provider Family Medicine
DX: R11.0 Nausea (principal)
CPT/HCPCS: 36415; 78264; 83516; 86255; A9541

== ENCOUNTER 2018-06-22 21:53 | Emergency (ER) | payer OTHER, SELFPAY ==
--- NOTE | 2018-06-22 21:56 | DI.CT.S_ITS ---
PROCEDURE: CT HEAD/BRAIN WO CON INDICATIONS: code stroke, TPA TECHNIQUE: Noncontrast 4.5 mm thick angled axial sections acquired from the foramen magnum to the vertex, with coronal and sagittal reformats. For radiation dose reduction, the following was used: automated exposure control, adjustment of mA and/or kV according to patient size. COMPARISON: [facility], CT, HEAD AND NECK ANGIO, 07/15/2015, 21:20. FINDINGS: Image quality: Excellent. CSF spaces: Basal cisterns are patent. No extra-axial fluid collections. Ventricles are normal in size and shape. Brain: No midline shift. No intracranial masses or hemorrhage. [place]-white matter interface is normal. Skull and face: Calvarium and visualized facial bones are intact, without suspicious lesions. Sinuses: Visualized sinuses and mastoids are clear. IMPRESSION: 1. No acute intracranial process. The above findings were discussed with Dr. Patricia Harrison on 06/22/18 at 10:06 PM. Dictated by: Lola Plata M.D. on 06/22/2018 at 22:05 Approved by: Lola Plata M.D. on 06/22/2018 at 22:08
--- NOTE | 2018-06-22 22:02 | DI.CT.S_ITS ---
PROCEDURE: CT ANGIO HEAD AND NECK INDICATIONS: code stroke TECHNIQUE: Pre-contrast 4.5 mm thick sections acquired from the foramen magnum to the vertex. After the administration of intravenous contrast, 1 mm thick sections acquired from the aortic arch through the [place]. Post-contrast 4.5 mm thick sections then re-acquired from the foramen magnum to the vertex. 3-dimensional hijqhwh-[id number]-bhxbwqfbmw (MIP) and/or volume rendering reformats were acquired of the central intracranial vasculature and neck separately. COMPARISON: [facility], CT, CT HEAD/BRAIN WO CON, 06/22/2018, 21:50. FINDINGS: Image quality: Excellent. BRAIN: CSF spaces: Ventricles are normal in size and shape. Basal cisterns are patent. No extra-axial fluid collections. Brain: No midline shift. No intracranial bleeds or masses. [place]-white matter interface appears intact. Skull and face: Calvarium and facial bones appear intact, without suspicious lesions. Orbits appear normal. Sinuses: Sinuses and mastoids are clear. HEAD CT ANGIOGRAPHY: Anterior circulation: Intracranial internal carotid arteries are normal in flow. Scattered atherosclerotic calcifications noted in the cavernous and supraclinoid segments of the internal carotid arteries bilaterally which do not cause measurable stenosis. The flow within the paired anterior cerebral arteries is normal and symmetric. The flow within the middle cerebral arteries is normal and symmetric. The anterior communicating artery is seen. No aneurysms are seen. Posterior circulation: Visualized portions of the vertebral arteries demonstrate normal caliber, and join to form a normal appearing basilar artery. Flow within the posterior cerebral arteries is normal and symmetric. No aneurysms are seen. NECK CT ANGIOGRAPHY: Carotid system: The great vessels demonstrate bovine variant anatomy as they arise from the aortic arch. The origins of the common carotid arteries appear patent. The common carotid arteries demonstrate normal caliber and courses. The bifurcation regions are both widely patent. The internal carotid arteries demonstrate normal calibers and courses. Posterior circulation: The origins of the vertebral arteries both appear widely patent. The more superior extracranial portions of both vertebral arteries also demonstrate normal courses and calibers. They join to form a normal appearing basilar artery. Soft tissues: Visualized neck soft tissues demonstrate no suspicious abnormalities. Bones: No suspicious bony lesions. Spine degenerative disc disease and facet arthropathy. Visualized cervical spine appears normally aligned. IMPRESSION: No large vessel occlusion. No significant vascular stenosis. No vascular dissection. No aneurysm. Any quantitative measurements of stenosis were performed using NASCET criteria. Dictated by: Yumiko Munoz MD, PhD on 06/23/2018 at 8:29 Approved by: Yumiko Munoz MD, PhD on 06/23/2018 at 8:35
[2018-06-22 22:05] VITALS: BMI 29.5
[2018-06-22 22:16] VITALS: BP 162/90; PULSE 72; RESP 12; TEMP 36.9; O2SAT 94
[2018-06-22 22:24] LABS: Hematocrit 38.6 % (41-53); Hemoglobin 13.4 g/dL (13.5-17.5); Mean Corpuscular HGB Conc 34.8 % (30-36); Mean Corpuscular Hemoglobin 32.2 PG (26-34); Mean Corpuscular Volume 92.4 fL (80-100); Platelet Count 121 X10^3/uL (150-400); Red Blood Cell Count 4.18 X10^6/uL (4.5-5.9); Red Cell Distribution Width 13.1 % (11.6-14.8); White Blood Cell Count 6.7 X10^3/uL (4.5-11.0)
--- NOTE | 2018-06-22 22:25 | ED.NEUROSD ---
HPI - Neuro Symptoms/Deficit General Chief Complaint: Neuro Symptoms/Deficit Stated Complaint: Code Stroke Time Seen by Provider: 06/22/18 22:06 History of Present Illness HPI Narrative: patient is a 63-year-old male who presents with some right-sided weakness. states that he was quiet all day today he went to bed around 730 were was much cooler, he was able to walk at that time. She went in to check on him and he was saying that the left side of the face was may be numb and really intense headache. Which point she called EMS for evaluation. They appreciated some right-sided weakness. Patient been seen and evaluated multiple times for right-sided chest pain. He is currently being worked up as an outpatient. He is complaining of some right-sided neck pain. Onset (ago): hour(s) Last Observed Normal: 19:30 Timing confirmed by: spouse Location: right arm and right leg Severity: mild Quality: weak, numb and tingling Relieving factors: none On Anticoagulants: No Related Data Home Medications Medication Instructions Recorded Confirmed prazosin 3 mg PO HS #0 02/01/17 04/29/18 lorazepam [Ativan] 2 mg PO PRN PRN #0 05/13/17 04/29/18 meloxicam 7.5 - 15 mg PO QDAY PRN #0 05/13/17 04/29/18 omeprazole 20 mg PO QDAY #0 05/13/17 06/22/18 tizanidine 1 dose PO DIRECTED PRN #0 05/13/17 04/29/18 hydromorphone [Dilaudid] 2 mg PO Q6HP PRN 04/29/18 06/23/18 loperamide 0 mg PO SEE INSTRUCTIONS PRN 04/29/18 04/29/18 metformin 1,000 mg PO BID 04/29/18 06/22/18 ondansetron [Zofran ODT] 4 mg SUBLINGUAL Q6HP PRN 04/29/18 04/29/18 Previous Rx's Medication Instructions Recorded ondansetron [Zofran ODT] 4 mg PO Q6H PRN #10 tab 04/29/18 lidocaine 1 patch TOP DAILY PRN #15 each 06/23/18 Allergies Allergy/AdvReac Type Severity Reaction Status Date / Time hydrocodone [From VICODIN] Allergy Unknown Verified 04/29/18 16:03 iodine [IODINE] Allergy Unknown Verified 04/23/18 15:54 acetaminophen [From VICODIN] AdvReac Unknown Verified 04/23/18 15:54 Review of Systems Review of Systems All systems reviewed & are unremarkable except as noted in HPI and below Constitutional Denies chills, Denies fever(s), Denies lethargy and Denies weakness Cardiovascular Reports as per HPI, Reports chest pain ( Right-sided), Denies dyspnea and Denies dyspnea on exertion Respiratory Denies cough, Denies dyspnea, Denies dyspnea on exertion and Denies wheezing Gastrointestinal Gastrointestinal: Denies abdominal pain, Denies change in bowel habits, Denies diarrhea, Denies nausea and Denies vomiting Musculoskeletal Denies back pain, Denies muscle weakness, Denies numbness and Denies tingling Neurologic Reports system reviewed and no additional complaints, except as docu, Denies numbness, Denies tingling and Denies weakness Allergic/Immunologic Denies wheezing [facility] Social History Smoking Status: Never smoker Exam Initial Vital Signs Initial Vital Signs: Vital Signs Temperature 98.5 F 06/22/18 22:16 Pulse Rate 72 06/22/18 22:16 Respiratory Rate 12 06/22/18 22:16 Blood Pressure 162/90 H 06/22/18 22:16 Pulse Oximetry 94 06/22/18 22:16 Const General: in distress and anxious ( moaning, crying) Nutritional Appearance: average body habitus [facility] Head: normal to inspection and normocephalic Nose: external nose normal Eyes Pupils: PERRL EOM: EOM intact bilaterally Neck Neck: full ROM, no meningeal signs, trachea midline and supple Chest Chest: normal inspection of the chest, normal palpation of entire chest wall and tenderness ( right side no paradoxical movement) Resp Effort & Inspection: normal respiratory effort and respiratory effort not decreased Auscultation: clear to auscultation bilaterally, no rales, no rhonchi and no wheezes Cardio Rate: regular rate Rhythm: regular rhythm Heart Sounds: no click, no gallops, no murmurs and no rubs Pulses: normal peripheral pulses GI Inspection: non-distended Palpation: soft, no hepatosplenomegaly, No guarding, No pulsatile mass and No tender Auscultation: normal bowel sounds Back/Spine/Pelvis Back: No CVA tenderness Cervical Spine: cervical ROM normal and No pain with cervical ROM Thoracic/Lumbar Spine: thoracic and lumbar spine normal to inspection Skin General: no rashes or lesions noted, No jaundice and No petechiae Neuro General: alert, awake and oriented x3 Cranial Nerves: CN's II-XI intact bilaterally Motor: No strength 5/5 throughout ( for a side both arm and leg drift back to the gurney however he is moving all extremities equally) Scores NIH Stroke Scale Level of Conciousness: Alert, keenly responsive Ask month/age: Answers neither question correctly, aphasic, stuporous, coma Open/close eyes, close hand: Performs both tasks correctly Best gaze horizontal: Normal Visual maciel: No visual loss Facial palsy: Minor paralysis, flattened nasolabial fold, asymmetry on smiling Left arm drift: No drift for full 10 sec Right arm drift: Some effort against gravity, cannot maintain, drifts down to bed Left leg drift: No drift for full 10 sec Right leg drift: Some effort against gravity, cannot maintain, drifts down to bed Limb ataxia: Absent Sensory on face/arms/legs: Normal, no sensory loss Best language: No aphasia, normal Dysarthria: Normal Extinction or inattention: No abnormality Total NIH Stroke scale score: 7 Course Orders Ordered: ED Orders 06/22/18 21:56 CT head/brain wo con Stat 06/22/18 22:02 CT angio head and neck Stat 06/22/18 22:11 Urine Drug Screen, Rapid Stat EKG-12 Lead Stat 06/22/18 22:15 Basic Metabolic Panel Stat Complete Blood Count MAN DIFF Stat Partial Thromboplastin Time Stat Prothrombin Time INR Stat Troponin & CK Cardiac Panel Stat 06/23/18 01:59 XR chest 1V Stat Discontinued Medications Hydromorphone HCl (Dilaudid) 1 mg IV NOW ONE Stop: 06/22/18 23:07 Last Admin: 06/22/18 23:20 Dose: 1 mg Hydromorphone HCl (Dilaudid) 1 mg IV NOW ONE Stop: 06/23/18 01:28 Last Admin: 06/23/18 01:51 Dose: 1 mg Sodium Chloride (Normal Saline 0.9%) 1,000 mls @ 150 mls/hr IV CONT KERVIN Last Infusion: 06/23/18 02:15 Dose: 0 mls/hr Admin: 06/22/18 22:34 Dose: 150 mls/hr Lidocaine HCl 7.8 ml/ Sodium (Chloride) 57.8 mls @ 346.8 mls/hr IV NOW ONE Stop: 06/23/18 00:16 Last Infusion: 06/23/18 01:17 Dose: 0 mls/hr Admin: 06/23/18 00:50 Dose: 346.8 mls/hr Ketorolac Tromethamine (Toradol) 30 mg IV NOW ONE Stop: 06/22/18 22:50 Last Admin: 06/22/18 22:53 Dose: 30 mg Lorazepam (Ativan) 1 mg IV NOW ONE Stop: 06/23/18 00:16 Last Admin: 06/23/18 00:45 Dose: 1 mg Vital Signs - 8 hr 06/22/18 22:16 06/22/18 22:30 06/22/18 22:55 Temperature 98.5 F Pulse Rate 72 68 69 Respiratory Rate 12 12 20 Blood Pressure [Left Arm] 162/90 H Blood Pressure [Right Arm] 154/90 H 149/87 H Pulse Oximetry 94 95 95 06/23/18 00:54 06/23/18 01:53 Temperature Pulse Rate 61 59 L Respiratory Rate 15 12 Blood Pressure [Left Arm] Blood Pressure [Right Arm] 128/82 H 162/92 H Pulse Oximetry 96 94 MDM - Neuro Symptoms/Deficit Lab Data Result diagrams: 06/22/18 22:15 06/22/18 22:15 Lab Results 06/22/18 06/22/18 06/22/18 Range/Units 22:15 22:15 22:15 WBC 6.7 (4.5-11.0) X10^3/uL RBC 4.18 L (4.5-5.9) X10^6/uL Hgb 13.4 L (13.5-17.5) g/dL Hct 38.6 L (41-53) % MCV 92.4 (80-100) fL MCH 32.2 (26-34) PG MCHC 34.8 (30-36) % RDW 13.1 (11.6-14.8) % Plt Count 121 L (150-400) X10^3/uL Total Counted 100 Seg Neutrophils % 52.0 (38-70) % Lymphocytes % (Manual) 37.0 (25-45) % Monocytes % (Manual) 11.0 (2-11) % Neutrophils # (Manual) 3484 (7356-9135) /uL RBC Morphology Normal morphology PT 13.3 H (10.1-12.7) SECONDS INR 1.2 (0.9-1.3) APTT 33 (26.4-36.2) SECONDS Sodium 137 (137-145) mmol/L Potassium 4.2 (3.4-5.1) mmol/L Chloride 102 (98-107) mmol/L Carbon Dioxide 26 (22-32) mmol/L BUN 19 (9-20) mg/dL Creatinine 1.00 (0.66-1.25) mg/dL Estimated GFR > 60.0 (>60) mL/min BUN/Creatinine Ratio 19.0 (6-22) Glucose 133 H (80-110) mg/dL Calcium 8.9 (8.4-10.2) mg/dL Total Creatine Kinase 51 L (55-170) U/L Troponin I < 0.012 (0.01-0.034) ng/mL Urine Opiates Screen (Negative) Ur Oxycodone Screen (Negative) Urine Methadone Screen (Negative) Ur Barbiturates Screen (Negative) U Tricyclic Antidepress (Negative) Ur Phencyclidine Scrn (Negative) Ur Amphetamines Screen (Negative) U Methamphetamines Scrn (Negative) Ur MDMA Scrn (Ecstasy) (Negative) U Benzodiazepines Scrn (Negative) Urine Cocaine Screen (Negative) U Marijuana (THC) Screen (Negative) 06/23/18 Range/Units 00:45 WBC (4.5-11.0) X10^3/uL RBC (4.5-5.9) X10^6/uL Hgb (13.5-17.5) g/dL Hct (41-53) % MCV (80-100) fL MCH (26-34) PG MCHC (30-36) % RDW (11.6-14.8) % Plt Count (150-400) X10^3/uL Total Counted Seg Neutrophils % (38-70) % Lymphocytes % (Manual) (25-45) % Monocytes % (Manual) (2-11) % Neutrophils # (Manual) ([id number]) /uL RBC Morphology PT (10.1-12.7) SECONDS INR (0.9-1.3) APTT (26.4-36.2) SECONDS Sodium (137-145) mmol/L Potassium (3.4-5.1) mmol/L Chloride (98-107) mmol/L Carbon Dioxide (22-32) mmol/L BUN (9-20) mg/dL Creatinine (0.66-1.25) mg/dL Estimated GFR (>60) mL/min BUN/Creatinine Ratio (6-22) Glucose (80-110) mg/dL Calcium (8.4-10.2) mg/dL Total Creatine Kinase (55-170) U/L Troponin I (0.01-0.034) ng/mL Urine Opiates Screen Negative (Negative) Ur Oxycodone Screen Negative (Negative) Urine Methadone Screen Negative (Negative) Ur Barbiturates Screen Negative (Negative) U Tricyclic Antidepress Negative (Negative) Ur Phencyclidine Scrn Negative (Negative) Ur Amphetamines Screen Negative (Negative) U Methamphetamines Scrn Negative (Negative) Ur MDMA Scrn (Ecstasy) Negative (Negative) U Benzodiazepines Scrn Positive H (Negative) Urine Cocaine Screen Negative (Negative) U Marijuana (THC) Screen Negative (Negative) Imaging Data Chest x-ray: Attestation: I personally reviewed and interpreted this imaging study as follows: My impression: no acute cardiopulmonary process CT scan - head: Radiologist's impression: PROCEDURE: CT HEAD/BRAIN WO CON INDICATIONS: code stroke, TPA TECHNIQUE: Noncontrast 4.5 mm thick angled axial sections acquired from the foramen magnum to the vertex, with coronal and sagittal reformats. For radiation dose reduction, the following was used: automated exposure control, adjustment of mA and/or kV according to patient size. COMPARISON: [facility], CT, HEAD AND NECK ANGIO, 07/15/2015, 21:20. FINDINGS: Image quality: Excellent. CSF spaces: Basal cisterns are patent. No extra-axial fluid collections. Ventricles are normal in size and shape. Brain: No midline shift. No intracranial masses or hemorrhage. [place]-white matter interface is normal. Skull and face: Calvarium and visualized facial bones are intact, without suspicious lesions. Sinuses: Visualized sinuses and mastoids are clear. IMPRESSION: 1. No acute intracranial process. The above findings were discussed with Dr. Patircia Harrison on 06/22/18 at 10:06 PM. Dictated by: Lola Plata M.D. 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 No acute process is identified involving arterial vasculature of the neck. ECG Data Attestation: I personally reviewed and interpreted this ECG as follows: Prior ECG tracings: available for review Interpretation: Sinus rhythm with T-wave inversion noted in lead 3 similar to previous EKGs no acute ST changes MDM Narrative Medical decision making narrative: patient initially concerned for stroke due to other right-sided weakness partial facial the moving right arm and pain. Now he really is complaining more of right-sided chest pain which has been ongoing for the the past 6 weeks. This is the same pain that he always feels. He says he normally takes an Ativan head pain medications that he can get some rest and some sleep. However the pain is pretty relentless. His states that this is now his normal pain. He is moaning and grabbing the right anterior side of his chest. There is no rash. He has had previous ultrasound and abdominal CTs in the past. Even a gastric emptying study. This now is patient has chronic ongoing right-sided chest pain which is being worked up as outpatient. I have discussed with possibility of lidocaine patches. She said that they used to have them but ran out. The patient is no longer a tPA candidate due to quickly improving symptoms also I am not convinced that his right-sided weakness was due to neurologic deficit. He seems to really be from his right-sided atypical chest pain. at this time patient is feeling better after Dilaudid he did not get much relief after the lidocaine. He is requesting to go home. is agreeable. I discussed all findings with the patient And spouse, Education has been performed regarding treatment plan, diagnosis, warning signs and symptoms and all concerns have been addressed. Verbally agree with and understood all of the above. Differential diagnosis: pulmonary embolism, dissection, cholelithiasis, coronary artery disease Discharge Plan Departure Patient Disposition: Home, Self-Care Clinical Impression: Chest wall muscle strain Discharge Date/Time: 06/23/18 02:15 Interventions: ED Discharge Assessment Last Done: 06/23/18 03:06 Instructions: Misael Activity Restrictions/Additional Instructions: *You have been diagnosed with chest wall strain, possibly from shingles *What to do: this is likely acute on chronic nerve pain. *Continue to take medications as directed - Lidocaine patches cut and apply to area leave on for 12 hr and then removed completely At your request you're medications have been faxed to [facility] *Follow up with your primary care provider in 2-3 days *Return to ER if you should have any new, worsening or concerning symptoms Prescriptions: New lidocaine 5 % adhesive patch,medicated 1 patch TOP DAILY PRN (Reason: pain) Qty: 15 RF: 0 No Action prazosin 1 MG capsule 3 mg PO HS Qty: 0 RF: 0 tizanidine 2 MG tablet 1 dose PO DIRECTED PRN (Reason: Spasms) Qty: 0 RF: 0 omeprazole 20 MG capsule,delayed release(DR/EC) 20 mg PO QDAY Qty: 0 RF: 0 lorazepam [Ativan] 2 MG tablet 2 mg PO PRN PRN (Reason: Anxiety) Qty: 0 RF: 0 meloxicam 15 MG tablet 7.5 - 15 mg PO QDAY PRN (Reason: Inflammation) Qty: 0 RF: 0 metformin 1,000 mg tablet 1,000 mg PO BID RF: 0 loperamide 2 MG capsule PO SEE INSTRUCTIONS PRN (Reason: Diarrhea) RF: 0 hydromorphone [Dilaudid] 2 MG tablet 2 mg PO Q6HP PRN (Reason: Pain, Severe) RF: 0 ondansetron [Zofran ODT] 4 MG tablet,disintegrating 4 mg Sublingual Q6HP PRN (Reason: Nausea And Vomiting) RF: 0 ondansetron [Zofran ODT] 4 mg tablet,disintegrating 4 mg PO Q6H PRN (Reason: nausea and vomiting) Qty: 10 RF: 0 Referrals: Shemar Leigh MD [Primary Care Provider] -
[2018-06-22 22:30] VITALS: BP 154/90; PULSE 68; RESP 12; O2SAT 95
[2018-06-22 22:33] LABS: INR 1.2 (0.9-1.3); Prothrombin Time 13.3 SECONDS (10.1-12.7)
[2018-06-22] MEDS: SODIUM CHLORIDE 0.9% 1,000 ML 150 ML IV (22:34)
[2018-06-22 22:35] LABS: PTT Partial Thromboplastin Tim 33 SECONDS (26.4-36.2)
[2018-06-22 22:37] LABS: Blood Urea Nitrogen 19 mg/dL (9-20); Calcium 8.9 mg/dL (8.4-10.2); Carbon Dioxide 26 mmol/L (22-32); Chloride 102 mmol/L (98-107); Creatine Kinase 51 U/L (55-170); Estimated Glomerular Filt Rate > 60.0 mL/min (>60); Glucose 133 mg/dL (80-110); HEMOLYSIS 16 (0-50); Potassium 4.2 mmol/L (3.4-5.1); Sodium 137 mmol/L (137-145)
[2018-06-22] MEDS: KETOROLAC 60 MG/2 ML VIAL 30 MG IV (22:53)
[2018-06-22 22:55] VITALS: BP 149/87; PULSE 69; RESP 20; O2SAT 95
[2018-06-22 22:56] LABS: Troponin I < 0.012 ng/mL (0.01-0.034)
[2018-06-22 22:59] LABS: Neutrophils Absolute Manual 3484 /uL (3000-5900); Total Cells Counted 100
[2018-06-22 23:00] LABS: RBC Morphology Normal Morphology
[2018-06-22] MEDS: HYDROMORPHONE 2 MG INJ 1 MG IV (23:20)
[2018-06-23] MEDS: LORazepam 2 MG/ML SYRINGE 1 MG IV (00:45)
[2018-06-23] MEDS: LIDOCAINE 2% 7.8 ML in SODIUM CHLORIDE 0.9% 50 ML 346.8 ML IV (00:50)
[2018-06-23 00:54] VITALS: BP 128/82; PULSE 61; RESP 15; O2SAT 96
[2018-06-23 01:02] LABS: Urine Amphetamines Negative (Negative); Urine Barbiturates Negative (Negative); Urine Benzodiazepines Positive (Negative); Urine Cocaine Negative (Negative); Urine MDMA Negative (Negative); Urine Methadone Negative (Negative); Urine Methamphetamines Negative (Negative); Urine Morphine/Opi cutoff 2000 Negative (Negative); Urine Oxycodone Negative (Negative); Urine Phencyclidine Negative (Negative); Urine THC Negative (Negative); Urine Tricyclic Antidepressant Negative (Negative)
[2018-06-23] MEDS: HYDROMORPHONE 2 MG INJ 1 MG IV (01:51)
[2018-06-23 01:53] VITALS: BP 162/92; PULSE 59; RESP 12; O2SAT 94
--- NOTE | 2018-06-23 01:59 | DI.RAD.S_ITS ---
PROCEDURE: XR CHEST 1V INDICATIONS: chest pain TECHNIQUE: One view of the chest was acquired. COMPARISON: [facility], CR, XR CHEST 2V, 04/23/2018, 14:45. FINDINGS: Surgical changes and devices: None. Lungs and pleura: No pleural effusions or pneumothorax. Lungs are clear. Mediastinum: Mediastinal contours appear normal. Heart size is normal. Bones and chest wall: No suspicious bony lesions. Overlying soft tissues appear unremarkable. IMPRESSION: No acute cardiopulmonary abnormality Findings concordant with the preliminary reading Dictated by: Chalo Cardenas M.D. on 06/23/2018 at 8:14 Approved by: Chalo Cardenas M.D. on 06/23/2018 at 8:15
== END 2018-06-23 02:15 | disposition home or self-care (01) ==
PROVIDERS: Emergency Provider Emergency Medicine; PCP Family Medicine
DX: S29.011A Strain of muscle and tendon of front wall of thorax, initial encounter (principal)
CPT/HCPCS: 70450; 70496; 70498; 71045; 80048; 80305; 82550; 82553; 84484; 85025; 85610; 85730; 93005; 96361; 96365; 96375; 96376; 99283; 99285; 99291; 99292; J1170; J1885; J2060; Q9967

== ENCOUNTER 2019-01-22 22:27 | Observation (INO) | payer OTHER, SELFPAY ==
--- NOTE | 2019-01-22 | DI.CT.S_ITS ---
PROCEDURE: CT HEAD/BRAIN WO CON INDICATIONS: HEADACHE AND CHEST PAIN TECHNIQUE: Noncontrast 4.5 mm thick angled axial sections acquired from the foramen magnum to the vertex, with coronal and sagittal reformats. For radiation dose reduction, the following was used: automated exposure control, adjustment of mA and/or kV according to patient size. COMPARISON: None. FINDINGS: Image quality: Excellent. CSF spaces: Basal cisterns are patent. No extra-axial fluid collections. The ventricles are symmetric in size and shape. Brain: No intracranial bleeds or masses. There is cerebral volume loss for age, with resultant ventricular and sulcal prominence. There are periventricular and deep white matter chronic small vessel ischemic changes. There is intracranial internal carotid artery atherosclerosis. Skull and face: Calvarium and visualized facial bones appear intact, without suspicious lesions. Sinuses: Visualized sinuses and mastoids are clear. IMPRESSION: No acute intracranial disease process. Dictated by: Yumiko Munoz MD, PhD on 01/23/2019 at 7:43 Approved by: Yumiko Munoz MD, PhD on 01/23/2019 at 7:44
[2019-01-22 22:30] VITALS: BP 161/95; PULSE 93; RESP 12; TEMP 36.4; O2SAT 92
--- NOTE | 2019-01-22 22:35 | DI.RAD.S_ITS ---
PROCEDURE: XR CHEST 1V INDICATIONS: chest pain TECHNIQUE: One view of the chest was acquired. COMPARISON: [facility], CR, XR CHEST 1V, 06/23/2018, 2:05. FINDINGS: Surgical changes and devices: None. Lungs and pleura: Lungs are clear. No pleural effusions or pneumothorax. Mediastinum: Mediastinal contours appear normal. Heart size is normal. Bones and chest wall: No suspicious bony lesions. Overlying soft tissues appear unremarkable. IMPRESSION: No acute cardiopulmonary disease process. Dictated by: Yumiko Munoz MD, PhD on 01/23/2019 at 8:11 Approved by: Yumiko Munoz MD, PhD on 01/23/2019 at 8:13
[2019-01-22] MEDS: NITROGLYCERIN 0.4 MG SL TAB SL ×2 (22:39→22:46)
[2019-01-22] MEDS: MORPHINE 4 MG/ML INJ IV (22:50)
[2019-01-22] MEDS: ASPIRIN 81 MG TAB 324 MG PO (22:50)
[2019-01-22 22:51] LABS: Add Manual Diff / Slide Review NO; Basophils Absolute Auto 100 /uL (0-100); Basophils Percent Auto 0.7 % (0-2); Eosinophils Absolute Auto 100 /uL (0-450); Eosinophils Percent Auto 0.8 % (2-4); Hematocrit 41.4 % (41-53); Hemoglobin 13.8 g/dL (13.5-17.5); Lymphocytes Absolute Auto 3400 /uL (1100-4500); Mean Corpuscular HGB Conc 33.3 % (30-36); Mean Corpuscular Hemoglobin 30.6 PG (26-34); Mean Corpuscular Volume 92.1 fL (80-100); Monocytes Absolute Auto 600 /uL (0-900); Monocytes Percent Auto 7.8 % (3-14); Neutrophils Absolute Auto 4100 /uL (1500-7000); Neutrophils Percent Auto 49.7 % (50-75); Platelet Count 149 X10^3/uL (150-400); Red Blood Cell Count 4.49 X10^6/uL (4.5-5.9); Red Cell Distribution Width 14.2 % (11.6-14.8); White Blood Cell Count 8.2 X10^3/uL (4.5-11.0)
[2019-01-22 23:00] VITALS: BP 123/68; PULSE 95; RESP 24; O2SAT 98
[2019-01-22 23:00] LABS: INR 1.1 (0.9-1.3); Prothrombin Time 12.4 SECONDS (10.1-12.7)
--- NOTE | 2019-01-22 23:00 | ED.CHESTPAIN ---
HPI - Chest Pain General Chief Complaint: Chest Pain Stated Complaint: chest pain Time Seen by Provider: 01/22/19 22:51 Source: patient and family () Mode of arrival: ambulatory Limitations: no limitations History of Present Illness HPI narrative: This is a 64-year-old male who comes to the emergency department with complaint of chest pain that started about 930 in the evening. He states he was sitting on his bed when he had started having pains for on the left side of his chest. It started radiating up towards his neck and head later patient states about half an hour afterwards. Patient states that it feels like a deep sharp squeezing feeling. He states that he has developed a headache and felt very lightheaded. Patient denies any nausea no vomiting he does feel short of breath. He has not had any recent travel, swelling in his lower extremities or calf pain. Patient does not have any pain radiating to his back patient has a history of diabetes type 2, no hypertension, no dyslipidemia. He takes metformin, presents Zosyn for bad dreams and PTSD as well as omeprazole. Denies any past surgical history. No tobacco, occasional alcohol with no illicit. Primary care is Dr. Alcaraz. He is denying any cardiac, pulmonary or embolic past medical history he is accompanied by his . Related Data Home Medications Medication Instructions Recorded Confirmed prazosin 3 mg PO HS #0 02/01/17 01/23/19 lorazepam [Ativan] 2 mg PO PRN PRN #0 05/13/17 01/23/19 omeprazole 20 mg PO QDAY #0 05/13/17 01/23/19 tizanidine 1 dose PO DIRECTED PRN #0 05/13/17 01/23/19 hydromorphone [Dilaudid] 4 mg PO Q6HP PRN 04/29/18 01/23/19 metformin 1,000 mg PO BID 04/29/18 01/23/19 Previous Rx's Medication Instructions Recorded lidocaine 1 patch TOP DAILY PRN #15 each 06/23/18 Allergies Allergy/AdvReac Type Severity Reaction Status Date / Time hydrocodone [From VICODIN] Allergy Unknown Verified 01/22/19 22:35 acetaminophen [From VICODIN] AdvReac Unknown Verified 01/22/19 22:35 Review of Systems Review of Systems ROS Unobtainable: All systems reviewed & are unremarkable except as noted in HPI and below Constitutional Denies chills, Denies fever(s), Denies lethargy and Denies weakness Cardiovascular Reports dyspnea and Denies dyspnea on exertion Respiratory Denies cough, Reports dyspnea, Denies dyspnea on exertion and Denies wheezing Neurologic Denies weakness Allergic/Immunologic Denies wheezing [facility] Social History Smoking Status: Never smoker Exam Narrative Exam Narrative: GENERAL: Alert and oriented x three, well-nourished male in moderate to severe distress. Patient will intermittently appear somewhat comfortable but then sort of rolled around on the bed. HEENT: Head normocephalic, atraumatic, EOMI, pupils reactive, face symmetric, moist mucous membranes NECK: Supple, full range of motion CARDIOVASCULAR: Regular rate and rhythm without murmurs, rubs or gallops. No rashes or skin changes. Pain was not reproducible with palpation. RESPIRATORY: Breath sounds equal bilaterally, no wheezes rales or rhonchi. ABDOMEN: Soft, nontender. Normoactive bowel sounds all 4 quadrants. No guarding or rebound, rigidity, no mass, no bruits or pulsatile mass. : No CVA tenderness EXTREMITIES: Normal range of motion, no clubbing or edema. Neurovascularly intact NEUROLOGICAL: Cranial nerves II through XII grossly intact. Moving all extremities SKIN: Warm, dry, no petechiae, no rashes or lesions. Initial Vital Signs Initial Vital Signs: Vital Signs Temperature 97.5 F L 01/22/19 22:30 Pulse Rate 93 H 01/22/19 22:30 Respiratory Rate 12 01/22/19 22:30 Blood Pressure 161/95 H 01/22/19 22:30 Pulse Oximetry 92 01/22/19 22:30 Scores HEART Score Heart Score history: Highly Suspicious Heart Score EKG: Normal Heart Score Age: 45-64 years old Heart Score risk factors: 1-2 risk factors Heart Score troponin: < or = to normal limit Heart Score Total: 4 Course Orders Ordered: ED Orders 01/22/19 22:35 XR chest 1V Stat EKG-12 Lead Stat 01/22/19 22:45 Complete Blood Count AUTO DIFF Stat Comprehensive Metabolic Panel Stat Lipase Stat Partial Thromboplastin Time Stat Prothrombin Time INR Stat Troponin & CK Cardiac Panel Stat 01/22/19 23:02 CT angio head and neck Stat 01/22/19 23:03 CT angio chest PE protocol Stat 01/23/19 05:00 Hemoglobin A1C % Routine Lipid Panel Routine Troponin I Q6H 01/23/19 06:00 NM blanca perf SPECT R&S pharm Routine Aspirin (Aspirin Ec) 81 mg PO DAILY KERVIN Morphine Sulfate (Morphine) 2 mg IV Q5MIN PRN PRN Reason: Chest Pain Nitroglycerin (Nitrostat) 0.4 mg SL [id number] PRN PRN Reason: Chest Pain Last Admin: 01/22/19 22:46 Dose: 0.4 mg Admin: 01/22/19 22:39 Dose: 0.4 mg Discontinued Medications Aspirin (Aspirin Chew) 324 mg PO NOW ONE Stop: 01/22/19 23:08 Last Admin: 01/22/19 22:50 Dose: 324 mg Hydromorphone HCl (Dilaudid) 1 mg IV NOW ONE Stop: 01/22/19 23:48 Hydromorphone HCl (Dilaudid) 2 mg IV NOW ONE Stop: 01/22/19 23:53 Last Admin: 01/22/19 23:53 Dose: 2 mg Hydromorphone HCl (Dilaudid) 1 mg IV NOW ONE Stop: 01/23/19 01:02 Last Admin: 01/23/19 01:02 Dose: 1 mg Lorazepam (Ativan) 1 mg IV NOW ONE Stop: 01/22/19 23:01 Morphine Sulfate (Morphine) 4 mg IV NOW ONE Stop: 01/22/19 23:08 Last Admin: 01/22/19 22:50 Dose: 4 mg Vital Signs - 8 hr 01/22/19 22:30 01/22/19 23:00 01/22/19 23:50 Temperature 97.5 F L Pulse Rate 93 H 95 H 90 Respiratory Rate 12 24 20 Blood Pressure 161/95 H Blood Pressure [Right Arm] 123/68 124/77 Pulse Oximetry 92 98 96 01/23/19 00:23 01/23/19 01:06 Temperature Pulse Rate 80 72 Respiratory Rate 20 18 Blood Pressure Blood Pressure [Right Arm] 112/62 145/86 H Pulse Oximetry 95 96 MDM - Chest Pain Lab Data Attestation: I reviewed the patient's lab results. Result diagrams: 01/22/19 22:45 01/22/19 22:45 Lab Results 01/22/19 01/22/19 01/22/19 Range/Units 22:45 22:45 22:45 WBC 8.2 (4.5-11.0) X10^3/uL RBC 4.49 L (4.5-5.9) X10^6/uL Hgb 13.8 (13.5-17.5) g/dL Hct 41.4 (41-53) % MCV 92.1 (80-100) fL MCH 30.6 (26-34) PG MCHC 33.3 (30-36) % RDW 14.2 (11.6-14.8) % Plt Count 149 L (150-400) X10^3/uL Neut % (Auto) 49.7 L (50-75) % Lymph % (Auto) 41.0 H (25-40) % [place] % (Auto) 7.8 (3-14) % Eos % (Auto) 0.8 L (2-4) % Baso % (Auto) 0.7 (0-2) % Neut # (Auto) 4100 (2687-5116) /uL Lymph # (Auto) 3400 (8727-4326) /uL [place] # (Auto) 600 (0-900) /uL Eos # (Auto) 100 (0-450) /uL Baso # (Auto) 100 (0-100) /uL PT 12.4 (10.1-12.7) SECONDS INR 1.1 (0.9-1.3) APTT 32 (26.4-36.2) SECONDS Sodium 139 (137-145) mmol/L Potassium 4.0 (3.4-5.1) mmol/L Chloride 103 (98-107) mmol/L Carbon Dioxide 24 (22-32) mmol/L BUN 18 (9-20) mg/dL Creatinine 1.10 (0.66-1.25) mg/dL Estimated GFR > 60.0 (>60) mL/min BUN/Creatinine Ratio 16.4 (6-22) Glucose 138 H (80-110) mg/dL Calcium 9.4 (8.4-10.2) mg/dL Total Bilirubin 0.4 (0.2-1.3) mg/dL AST 30 (17-59) IU/L ALT 30 (21-72) IU/L Alkaline Phosphatase 56 (38-126) U/L Total Creatine Kinase 69 (55-170) U/L CK-MB (CK-2) TNP CK-MB (CK-2) Rel Index TNP Troponin I < 0.012 (0.01-0.034) ng/mL Total Protein 8.4 H (6.3-8.2) g/dL Albumin 4.7 (3.5-5.0) g/dL Globulin 3.7 (1.7-4.1) g/dL Albumin/Globulin Ratio 1.3 (1.0-2.8) Lipase 56 (23-300) U/L Imaging Data Chest x-ray: My impression: No acute process, no widened mediastinum. No pneumothorax or infiltrate. No fracture. Head and neck angio: Radiologist's impression: Includes head CT without which is read as no acute process. Patient also has a CT angio head and neck which shows the brain with normal configuration and [place] vessels. No vessel trunk a laureano or filling defect. No vascular malformation or aneurysm demonstrated. Angiogram of neck and carotid arteries shows great vessel origins are patent the level of the aortic arch. Bilateral subclavian arteries are patent. Vertebral arteries are patent, left vertebral artery is dominant. Bilateral common carotid arteries demonstrate no significant stenosis. Bilateral carotid bulbs and internal carotid arteries are unremarkable without plaques or stenosis. No soft tissue mass or significant adenopathy of the neck PE study: Radiologist's impression: Chronic interstitial fibrosis predominantly in the lung bases. No significant abnormalities. Thoracic aorta normal in caliber without evidence for dissection and no evidence for pulmonary embolism. ECG Data Attestation: I personally reviewed and interpreted this ECG as follows: Interpretation: Sinus rhythm with a rate 88 DE interval 174 QRS 83 and QTC of 403. No ST elevation or depression appreciated. Patient has some artifact initially in lead 1 and 3. MDM Narrative Medical decision making narrative: Patient was initially concerning for cardiac worse is pulmonary embolism, dissection of the vasculature of the neck or aortic arch. Patient's imaging is negative. He did not respond initially to nitro sublingual but did respond to narcotic pain control. When we woke up the patient to talk with him his pain had returned and was given a digital dose. He does have a heart score of 4 with risk factors including diabetes and age. He does not have a significant cardiac history or family history. Discussed with the hospitalist Flora and she accepts for observation. Patient has been pain free in department at this time. Discharge Plan Departure Patient Disposition: Admitted as Observation Interventions: ED Discharge Assessment Last Done: 01/23/19 01:18 Referrals: Shemar Leigh MD [Primary Care Provider] - Admit Date/Time: 01/23/19 01:23 Admit Provider: Leah Hines
--- NOTE | 2019-01-22 23:02 | DI.CT.S_ITS ---
PROCEDURE: CT ANGIO HEAD AND NECK INDICATIONS: chest pain,headache TECHNIQUE: Pre-contrast 4.5 mm thick sections acquired from the foramen magnum to the vertex. After the administration of intravenous contrast, 1 mm thick sections acquired from the aortic arch through the [place]. Post-contrast 4.5 mm thick sections then re-acquired from the foramen magnum to the vertex. 3-dimensional msfpkbp-dvdnxcegl-dyayxfwjit (MIP) and/or volume rendering reformats were acquired of the central intracranial vasculature and neck separately. COMPARISON: None. FINDINGS: Image quality: Excellent. BRAIN: CSF spaces: Ventricles are normal in size and shape. Basal cisterns are patent. No extra-axial fluid collections. Brain: No midline shift. No intracranial bleeds or masses. [place]-white matter interface appears intact. Skull and face: Calvarium and facial bones appear intact, without suspicious lesions. Orbits appear normal. Sinuses: Sinuses and mastoids are clear. HEAD CT ANGIOGRAPHY: Anterior circulation: Intracranial internal carotid arteries are normal in size and flow. Minimal atherosclerotic calcification noted in the cavernous segmenst of the bilateral internal carotid arteries and in the ophthalmic segment of the left internal carotid artery. The flow within the paired anterior cerebral arteries is normal and symmetric. The flow within the middle cerebral arteries is normal and symmetric. The anterior communicating artery is seen. No aneurysms are seen. Posterior circulation: Visualized portions of the vertebral arteries demonstrate normal caliber, and join to form a normal appearing basilar artery. Flow within the posterior cerebral arteries is normal and symmetric. No aneurysms are seen. NECK CT ANGIOGRAPHY: Carotid system: The great vessels demonstrate bovine variant anatomy as they arise from the aortic arch. The origins of the common carotid arteries appear patent. The common carotid arteries demonstrate normal caliber and courses. The bifurcation regions are both widely patent. The internal carotid arteries demonstrate normal calibers and courses. Posterior circulation: The origin of left vertebral artery. Noncalcified atherosclerotic plaque noted in the origin of the right vertebral artery which causes high grade stenosis. There is slightly diminished flow in the right vertebral artery distal to the origin of the vessel. The more superior extracranial portions of both vertebral arteries also demonstrate normal courses and calibers. They join to form a normal appearing basilar artery. Soft tissues: Visualized neck soft tissues demonstrate no suspicious abnormalities. Bones: No suspicious bony lesions. Spine degenerative disc disease and facet arthropathy. Visualized cervical spine appears normally aligned. IMPRESSION: 1. No acute intracranial disease process. 2. 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 3. No large vessel occlusion, vascular dissection or aneurysm. Any quantitative measurements of stenosis were performed using NASCET criteria. Dictated by: Yumiko Munoz MD, PhD on 01/23/2019 at 7:47 Approved by: Yumiko Munoz MD, PhD on 01/23/2019 at 7:57
[2019-01-22 23:03] LABS: PTT Partial Thromboplastin Tim 32 SECONDS (26.4-36.2)
--- NOTE | 2019-01-22 23:03 | DI.CT.S_ITS ---
PROCEDURE: CT ANGIO CHEST PE PROTOCOL INDICATIONS: chest pain, low o2 sat TECHNIQUE: After the administration of intravenous contrast, 2 mm thick sections acquired from the pulmonary apices to the posterior costophrenic angles. 3-dimensional maximum intensity projection (MIP) coronal and sagittal reformats were then acquired through the thorax. For radiation dose reduction, the following was used: automated exposure control, adjustment of mA and/or kV according to patient size. COMPARISON: None. FINDINGS: Image quality: Excellent. Pulmonary arteries: Pulmonary arteries are normal in size, and demonstrate no intraluminal filling defects to suggest central pulmonary embolism. Lungs and pleura: Atelectasis noted in the dependent portions of the lungs. Lungs are otherwise clear of acute opacities. No pleural effusions or pneumothorax. Central and peripheral airways are patent. Mediastinum: Heart size is normal, without pericardial effusion. Atherosclerotic calcifications noted in the left coronary vasculature and the aortic arch. No mediastinal or hilar adenopathy. Thoracic aorta is normal in caliber and enhancement. Esophagus is normal in caliber, without hiatal hernia. Bones and chest wall: No suspicious bony lesions. Ribs and thoracic spine appear intact throughout. Spine degenerative disc disease and facet arthropathy. Thyroid gland is within normal limits. No axillary or supraclavicular adenopathy. Abdomen: Visualized upper abdominal solid organs appear normal in the early arterial phase of enhancement. IMPRESSION: 1. No pulmonary embolus. 2. No lung consolidation. 3. No pleural effusions. Dictated by: Yumiko Munoz MD, PhD on 01/23/2019 at 7:58 Approved by: Yumiko Munoz MD, PhD on 01/23/2019 at 8:04
[2019-01-22 23:05] LABS: Alanine Aminotransferase 30 IU/L (21-72); Albumin 4.7 g/dL (3.5-5.0); Albumin Globulin Ratio 1.3 (1.0-2.8); Alkaline Phosphatase 56 U/L (38-126); Aspartate Aminotransferase 30 IU/L (17-59); BUN Creatinine Ratio 16.4 (6-22); Bilirubin Total 0.4 mg/dL (0.2-1.3); Blood Urea Nitrogen 18 mg/dL (9-20); Calcium 9.4 mg/dL (8.4-10.2); Carbon Dioxide 24 mmol/L (22-32); Chloride 103 mmol/L (98-107); Creatine Kinase 69 U/L (55-170); Estimated Glomerular Filt Rate > 60.0 mL/min (>60); Globulin 3.7 g/dL (1.7-4.1); Glucose 138 mg/dL (80-110); HEMOLYSIS < 15 (0-50); Lipase 56 U/L (23-300); Sodium 139 mmol/L (137-145); Total Protein 8.4 g/dL (6.3-8.2)
--- NOTE | 2019-01-22 23:08 | PC.NURSE ---
B?P at 2246 131/88,[id number].
--- NOTE | 2019-01-22 23:09 | ED_ITS ---
HPI - Chest Pain General Chief Complaint: Chest Pain Stated Complaint: chest pain Time Seen by Provider: 01/22/19 22:51 Source: patient and family () Mode of arrival: ambulatory Limitations: no limitations History of Present Illness HPI narrative: This is a 64-year-old male who comes to the emergency department with complaint of chest pain that started about 930 in the evening. He states he was sitting on his bed when he had started having pains for on the left side of his chest. It started radiating up towards his neck and head later patient states about half an hour afterwards. Patient states that it feels like a deep sharp squeezing feeling. He states that he has developed a headache and felt very lightheaded. Patient denies any nausea no vomiting he does feel short of breath. He has not had any recent travel, swelling in his lower extremities or calf pain. Patient does not have any pain radiating to his back patient has a history of diabetes type 2, no hypertension, no dyslipidemia. He takes metformin, presents Zosyn for bad dreams and PTSD as well as omeprazole. Denies any past surgical history. No tobacco, occasional alcohol with no illicit. Primary care is Dr. Alcaraz. He is denying any cardiac, pulmonary or embolic past medical history he is accompanied by his . Related Data Home Medications Medication Instructions Recorded Confirmed prazosin 3 mg PO HS #0 02/01/17 01/23/19 lorazepam [Ativan] 2 mg PO PRN PRN #0 05/13/17 01/23/19 omeprazole 20 mg PO QDAY #0 05/13/17 01/23/19 tizanidine 1 dose PO DIRECTED PRN #0 05/13/17 01/23/19 hydromorphone [Dilaudid] 4 mg PO Q6HP PRN 04/29/18 01/23/19 metformin 1,000 mg PO BID 04/29/18 01/23/19 Previous Rx's Medication Instructions Recorded lidocaine 1 patch TOP DAILY PRN #15 each 06/23/18 Allergies Allergy/AdvReac Type Severity Reaction Status Date / Time hydrocodone [From VICODIN] Allergy Unknown Verified 01/22/19 22:35 acetaminophen [From VICODIN] AdvReac Unknown Verified 01/22/19 22:35 Review of Systems Review of Systems ROS Unobtainable: All systems reviewed & are unremarkable except as noted in HPI and below Constitutional Denies chills, Denies fever(s), Denies lethargy and Denies weakness Cardiovascular Reports dyspnea and Denies dyspnea on exertion Respiratory Denies cough, Reports dyspnea, Denies dyspnea on exertion and Denies wheezing Neurologic Denies weakness Allergic/Immunologic Denies wheezing [facility] Social History Smoking Status: Never smoker Exam Narrative Exam Narrative: GENERAL: Alert and oriented x three, well-nourished male in moderate to severe distress. Patient will intermittently appear somewhat comfo rtable but then sort of rolled around on the bed. HEENT: Head normocephalic, atraumatic, EOMI, pupils reactive, face symmetric, moist mucous membranes NECK: Supple, full range of motion CARDIOVASCULAR: Regular rate and rhythm without murmurs, rubs or gallops. No rashes or skin changes. Pain was not reproducible with palpation. RESPIRATORY: Breath sounds equal bilaterally, no wheezes rales or rhonchi. ABDOMEN: Soft, nontender. Normoactive bowel sounds all 4 quadrants. No guarding or rebound, rigidity, no mass, no bruits or pulsatile mass. : No CVA tenderness EXTREMITIES: Normal range of motion, no clubbing or edema. Neurovascularly intact NEUROLOGICAL: Cranial nerves II through XII grossly intact. Moving all extremities SKIN: Warm, dry, no petechiae, no rashes or lesions. Initial Vital Signs Initial Vital Signs: Vital Signs Temperature 97.5 F L 01/22/19 22:30 Pulse Rate 93 H 01/22/19 22:30 Respiratory Rate 12 01/22/19 22:30 Blood Pressure 161/95 H 01/22/19 22:30 Pulse Oximetry 92 01/22/19 22:30 Scores HEART Score Heart Score history: Highly Suspicious Heart Score EKG: Normal Heart Score Age: 45-64 years old Heart Score risk factors: 1-2 risk factors Heart Score troponin: < or = to normal limit Heart Score Total: 4 Course Orders Ordered: ED Orders 01/22/19 22:35 XR chest 1V Stat EKG-12 Lead Stat 01/22/19 22:45 Complete Blood Count AUTO DIFF Stat Comprehensive Metabolic Panel Stat Lipase Stat Partial Thromboplastin Time Stat Prothrombin Time INR Stat Troponin & CK Cardiac Panel Stat 01/22/19 23:02 CT angio head and neck Stat 01/22/19 23:03 CT angio chest PE protocol Stat 01/23/19 05:00 Hemoglobin A1C % Routine Lipid Panel Routine Troponin I Q6H 01/23/19 06:00 NM blanca perf SPECT R&S pharm Routine Aspirin (Aspirin Ec) 81 mg PO DAILY KERVIN Morphine Sulfate (Morphine) 2 mg IV Q5MIN PRN PRN Reason: Chest Pain Nitroglycerin (Nitrostat) 0.4 mg SL [id number] PRN PRN Reason: Chest Pain Last Admin: 01/22/19 22:46 Dose: 0.4 mg Admin: 01/22/19 22:39 Dose: 0.4 mg Discontinued Medications Aspirin (Aspirin Chew) 324 mg PO NOW ONE Stop: 01/22/19 23:08 Last Admin: 01/22/19 22:50 Dose: 324 mg Hydromorphone HCl (Dilaudid) 1 mg IV NOW ONE Stop: 01/22/19 23:48 Hydromorphone HCl (Dilaudid) 2 mg IV NOW ONE Stop: 01/22/19 23:53 Last Admin: 01/22/19 23:53 Dose: 2 mg Hydromorphone HCl (Dilaudid) 1 mg IV NOW ONE Stop: 01/23/19 01:02 Last Admin: 01/23/19 01:02 Dose: 1 mg Lorazepam (Ativan) 1 mg IV NOW ONE Stop: 01/22/19 23:01 Morphine Sulfate (Morphine) 4 mg IV NOW ONE Stop: 01/22/19 23:08 Last Admin: 01/22/19 22:50 Dose: 4 mg Vital Signs - 8 hr 01/22/19 22:30 01/22/19 23:00 01/22/19 23:50 Temperature 97.5 F L Pulse Rate 93 H 95 H 90 Respiratory Rate 12 24 20 Blood Pressure 161/95 H Blood Pressure [Right Arm] 123/68 124/77 Pulse Oximetry 92 98 96 01/23/19 00:23 01/23/19 01:06 Temperature Pulse Rate 80 72 Respiratory Rate 20 18 Blood Pressure Blood Pressure [Right Arm] 112/62 145/86 H Pulse Oximetry 95 96 MDM - Chest Pain Lab Data Attestation: I reviewed the patient's lab results. Result diagrams: 01/22/19 22:45 02/21/19 22:45 Lab Results 01/22/19 01/22/19 01/22/19 Range/Units 22:45 22:45 22:45 WBC 8.2 (4.5-11.0) X10^3/uL RBC 4.49 L (4.5-5.9) X10^6/uL Hgb 13.8 (13.5-17.5) g/dL Hct 41.4 (41-53) % MCV 92.1 (80-100) fL MCH 30.6 (26-34) PG MCHC 33.3 (30-36) % RDW 14.2 (11.6-14.8) % Plt Count 149 L (150-400) X10^3/uL Neut % (Auto) 49.7 L (50-75) % Lymph % (Auto) 41.0 H (25-40) % [place] % (Auto) 7.8 (3-14) % Eos % (Auto) 0.8 L (2-4) % Baso % (Auto) 0.7 (0-2) % Neut # (Auto) 4100 (3734-1505) /uL Lymph # (Auto) 3400 (6795-0331) /uL [place] # (Auto) 600 (0-900) /uL Eos # (Auto) 100 (0-450) /uL Baso # (Auto) 100 (0-100) /uL PT 12.4 (10.1-12.7) SECONDS INR 1.1 (0.9-1.3) APTT 32 (26.4-36.2) SECONDS Sodium 139 (137-145) mmol/L Potassium 4.0 (3.4-5.1) mmol/L Chloride 103 (98-107) mmol/L Carbon Dioxide 24 (22-32) mmol/L BUN 18 (9-20) mg/dL Creatinine 1.10 (0.66-1.25) mg/dL Estimated GFR > 60.0 (>60) mL/min BUN/Creatinine Ratio 16.4 (6-22) Glucose 138 H (80-110) mg/dL Calcium 9.4 (8.4-10.2) mg/dL Total Bilirubin 0.4 (0.2-1.3) mg/dL AST 30 (17-59) IU/L ALT 30 (21-72) IU/L Alkaline Phosphatase 56 (38-126) U/L Total Creatine Kinase 69 (55-170) U/L CK-MB (CK-2) TNP CK-MB (CK-2) Rel Index TNP Troponin I < 0.012 (0.01-0.034) ng/mL Total Protein 8.4 H (6.3-8.2) g/dL Albumin 4.7 (3.5-5.0) g/dL Globulin 3.7 (1.7-4.1) g/dL Albumin/Globulin Ratio 1.3 (1.0-2.8) Lipase 56 (23-300) U/L Imaging Data Chest x-ray: My impression: No acute process, no widened mediastinum. No pneumothorax or infiltrate. No fracture. Head and neck angio: Radiologist's impression: Includes head CT without which is read as no acute process. Patient also has a CT angio head and neck which shows the brain with normal configuration and [place] vessels. No vessel trunk a laure[place] or filling defect. No vascular malformation or aneurysm demonstrated. Angiogram of neck and carotid arteries shows great vessel origins are patent the level of the aortic arch. Bilateral subclavian arteries are patent. Vertebral arteries are patent, left vertebral artery is dominant. Bilateral common carotid arteries demonstrate no significant stenosis. Bilateral carotid bulbs and internal carotid arteries are unremarkable without plaques or stenosis. No soft tissue mass or significant adenopathy of the neck PE study: Radiologist's impression: Chronic interstitial fibrosis predominantly in the lung bases. No significant abnormalities. Thoracic aorta normal in caliber without evidence for dissection and no evidence for pulmonary embolism. ECG Data Attestation: I personally reviewed and interpreted this ECG as follows: Interpretation: Sinus rhythm with a rate 88 SD interval 174 QRS 83 and QTC of 403. No ST elevation or depression appreciated. Patient has some artifact initially in lead 1 and 3. MDM Narrative Medical decision making narrative: Patient was initially concerning for cardiac worse is pulmonary embolism, dissection of the vasculature of the neck or aortic arch. Patient's imaging is negative. He did not respond initially to nitro sublingual but did respond to narcotic pain control. When we woke up the patient to talk with him his pain had returned and was given a digital dose. He does have a heart score of 4 with risk factors including diabetes and age. He does not have a significant cardiac history or family history. Discussed with the hospitalist Flora and she accepts for observation. Patient has been pain free in department at this time. Discharge Plan Departure Patient Disposition: Admitted as Observation Interventions: ED Discharge Assessment Last Done: 01/23/19 01:18 Referrals: Shemar Leigh MD [Primary Care Provider] - Admit Date/Time: 01/23/19 01:23 Admit Provider: Leah Hines
[2019-01-22 23:16] LABS: Troponin I < 0.012 ng/mL (0.01-0.034)
[2019-01-22 23:50] VITALS: BP 124/77; PULSE 90; RESP 20; O2SAT 96
[2019-01-22] MEDS: HYDROMORPHONE 1 MG INJ 2 MG IV (23:53)
[2019-01-23] VITALS (8 sets, daily range): BP systolic 112–145; BP diastolic 62–86; PULSE 59–80; RESP 16–20; TEMP 35.6–36.5; O2SAT 91–99; BMI 31.6
[2019-01-23] MEDS: HYDROMORPHONE 1 MG INJ IV (01:02)
[2019-01-23] MEDS: SODIUM CHLORIDE 0.9% 1,000 ML 100 ML IV ×2 (04:11→14:24)
[2019-01-23] MEDS: diphenhydrAMINE 50 MG/ML VIAL 25 MG IV (04:11)
[2019-01-23] MEDS: PROCHLORPERAZINE 10 MG/2 ML VIAL IV (04:11)
--- NOTE | 2019-01-23 04:28 | PC.NURSE ---
Admission/Shift Note: Pt arrived on unit at 0245 via stretcher from ED. Pt c/o of 10/10 pain on numeric pain scale and goes back and forth with pain behaviors (crying out, moaning, wincing, grabbing chest) with varying locations (chest, neck, jaw, head, left arm). Pt able to complete admission assessment but was very focused on pain and getting pain medication administered. Pt reported having recent fall in a hotel shower with no accompanied bruising. Pt does have two circular discolorations associated with cupping therapy on lower back on either side of spine. Directed SWITCH OPERATORS SUPERVISOR to change pt into yellow fall risk gown, and as SWITCH OPERATORS SUPERVISOR was unbuttoning blue gown pt started clutching his chest and crying out in pain. SWITCH OPERATORS SUPERVISOR was able to dress pt in yellow gown with no further difficulties. Pt asked during assessment if anyone was getting started on getting me pain medications. This RN responded by letting pt know that meds cannot be obtained while this RN is in the room completing assessment and admission. Pt responded with oh. CHAYA Hines entered room after admission assessment was completed. New orders were written for medications and pt was to resume NPO status. This RN entered room to find pt was irritated that he was not going to be given Dilaudid by IV as it's the only thing that works and I don't understand why I can't have what works. Educated pt on medications that were ordered and their purpose and that those meds needed to be attempted first. Educated pt on NPO status r/t cardiac stress test in the morning. Pt is allowed small sips of water infrequently but is not allowed to have a cup of water bedside. Initiated IV fluids and administered 25mg Benadryl and 10mg Compazine per MAR, gave 2L O2 by NC, and continuous pulse oximetry per FORMING AND ASSEMBLING SUPERVISOR orders. Educated pt on sedating effect of the meds and the need for a bed alarm and to call with the call button should he need to leave the bed. Gave pt a urinal to use and educated him that he could call to have it emptied or that he could leave it on his bedside table and that it would be emptied during hourly checks. Pt acknowledged all the teaching and instructions affirmatively. Trini Srivastava rooming in. All safety checks completed.
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
[2019-01-23 06:07] LABS: Cholesterol 186 mg/dL (140-199); HDL Cholesterol 25 mg/dL (40-60); Triglycerides 493 mg/dL (35-150)
[2019-01-23 06:20] LABS: Troponin I < 0.012 ng/mL (0.01-0.034)
[2019-01-23 06:25] LABS: Hemoglobin A1C% w Est Avg Glu 7.3 % (4.0-6.0)
[2019-01-23] MEDS: KETOROLAC 30 MG/ML VIAL IV (07:41)
--- NOTE | 2019-01-23 07:48 | PC.NURSE ---
Addendum entered by Cynthia Diaz R.N. 01/23/19 12:15: PAIN - new order for 4mg po dilaudid ordered, given to pt at lunch why can't it be iv, verified that this is what he takes at home. Original Note: Addendum entered by Cynthia Diaz R.N. 01/23/19 11:45: PAIN - spoke to regarding pt stating the chest discomfort is increasing and pt is frustrated I have stronger medication at home, placed the lidocaine patch over the upper chest. Original Note: Addendum entered by Cynthia Diaz R.N. 01/23/19 09:18: PAIN - remains drowsy, RT in for RA trial, 95% when awake, drifts down to 91% when asleep, states chest discomfort remains, can I have any pain medication?, discussed medications given now, declined the lidocaine patch, they don't work, spoke to [facility], stress test won't be performed until after 1500 today, pt may eat lunch and then npo after, Dr. Escobar informed. Original Note: AM NOTE - pt slightly drowsy, asking for pain medication, points to upper l chest area and states discomfort 9 on scale 0/10, describes as ongoing but in comparison to discomfort at admission states its gotten a little better, 2l 97%, hr reg 60, no sob noted, oral care provided, given 30mg iv toradol.
[2019-01-23] MEDS: HEPARIN 5,000 UNIT/ML VIAL 5000 UNIT SUBCUT (09:04)
[2019-01-23] MEDS: ASPIRIN EC 81 MG TABLET PO (09:05)
[2019-01-23] MEDS: PANTOPRAZOLE 40 MG VIAL IV (09:05)
--- NOTE | 2019-01-23 11:31 | PT.IPTN ---
Physical Therapy Treatment Note [facility] PT-IP Subjective Start: 01/23/19 11:29 Freq: NEEDED Status: Active Protocol: Document 01/23/19 10:15 (Rec: 01/23/19 11:31 [email or web address]) Subjective Physical Therapy Visit Type Type Administrative Note Notes Per VIBHA Marie, Pt has been c/o ongoing chest pain and recommended to hold off for PT at this point. Pt is going to have a stress test 330 pm
[2019-01-23 11:40] LABS: Urine Amphetamines Negative (Negative); Urine Barbiturates Negative (Negative); Urine Benzodiazepines Positive (Negative); Urine Cocaine Negative (Negative); Urine MDMA Negative (Negative); Urine Methadone Negative (Negative); Urine Methamphetamines Negative (Negative); Urine Morphine/Opi cutoff 2000 Negative (Negative); Urine Oxycodone Negative (Negative); Urine Phencyclidine Negative (Negative); Urine Tetrahydrocannabinol Negative (Negative); Urine Tricyclic Antidepressant Negative (Negative)
[2019-01-23] MEDS: LIDOCAINE PATCH 1 EACH ADH..PATCH TOP (11:41)
[2019-01-23] MEDS: HYDROMORPHONE 4 MG TABLET PO (12:10)
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
== END 2019-01-23 15:49 | disposition home or self-care (01) ==
LOC: ED 01-23 01:04 → AC 01-23 01:24
PROVIDERS: Admitting Provider Nurse Practitioner Gerontology; Emergency Provider Emergency Medicine; PCP Family Medicine; Visit Provider Nurse Practitioner Gerontology
DX: R07.89 Other chest pain (principal); R07.9 Chest pain, unspecified; E11.9 Type 2 diabetes mellitus without complications; Z79.84 Long term (current) use of oral hypoglycemic drugs; F43.10 Post-traumatic stress disorder, unspecified; Z76.5 Malingerer [conscious simulation]; K21.9 Gastro-esophageal reflux disease without esophagitis; R42 Dizziness and giddiness; F68.8 Other specified disorders of adult personality and behavior; Z87.828 Personal history of other (healed) physical injury and trauma; Z91.81 History of falling
CPT/HCPCS: 36415; 36591; 70450; 70496; 70498; 71045; 71275; 80053; 80061; 80305; 82550; 82553; 82962; 83036; 83690; 84484; 85025; 85610; 85730; 93005; 93010; 94762; 96374; 96375; 96376; 99283; 99285; G0378; C9113; J0780; J1170; J1200; J1644; J1885; J2270; Q9967

== ENCOUNTER → 2019-03-06 12:06 | Outpatient (CLI) | payer OTHER, SELFPAY ==
[2019-01-23 02:42] VITALS: BMI 31.6
[2019-03-06 13:00] LABS: Add Manual Diff / Slide Review NO; Basophils Absolute Auto 0 /uL (0-100); Basophils Percent Auto 0.4 % (0-2); Eosinophils Absolute Auto 100 /uL (0-450); Hematocrit 42.9 % (41-53); Lymphocytes Absolute Auto 2100 /uL (1100-4500); Lymphocytes Percent Auto 37.7 % (25-40); Mean Corpuscular HGB Conc 32.6 % (30-36); Mean Corpuscular Hemoglobin 30.5 PG (26-34); Mean Corpuscular Volume 93.5 fL (80-100); Monocytes Absolute Auto 500 /uL (0-900); Neutrophils Absolute Auto 2900 /uL (1500-7000); Neutrophils Percent Auto 51.9 % (50-75); Platelet Count 131 X10^3/uL (150-400); Red Blood Cell Count 4.59 X10^6/uL (4.5-5.9); Red Cell Distribution Width 14.1 % (11.6-14.8); White Blood Cell Count 5.6 X10^3/uL (4.5-11.0)
[2019-03-06 13:36] LABS: Alanine Aminotransferase 34 IU/L (21-72); Albumin 4.9 g/dL (3.5-5.0); Albumin Globulin Ratio 1.5 (1.0-2.8); Alkaline Phosphatase 50 U/L (38-126); Aspartate Aminotransferase 28 IU/L (17-59); BUN Creatinine Ratio 18.9 (6-22); Bilirubin Total 0.7 mg/dL (0.2-1.3); Bilirubin Unconjugated 0.6 mg/dL (0.0-1.1); Blood Urea Nitrogen 17 mg/dL (9-20); Calcium 9.6 mg/dL (8.4-10.2); Carbon Dioxide 24 mmol/L (22-32); Chloride 104 mmol/L (98-107); Cholesterol 210 mg/dL (140-199); Estimated Glomerular Filt Rate > 60.0 mL/min (>60); Globulin 3.2 g/dL (1.7-4.1); Glucose 112 mg/dL (80-110); HDL Cholesterol 31 mg/dL (40-60); HEMOLYSIS < 15 (0-50); LDL Cholesterol Calculated 121 mg/dL (<100); Magnesium 1.7 mg/dL (1.6-2.3); Potassium 4.6 mmol/L (3.4-5.1); Sodium 141 mmol/L (137-145); Total Protein 8.1 g/dL (6.3-8.2); Triglycerides 289 mg/dL (35-150)
[2019-03-06 13:54] LABS: C-Reactive Protein Quant < 0.5 mg/dL (<1.0)
[2019-03-06 14:04] LABS: Thyroid Stimulating Hormone 1.87 uIU/mL (0.47-4.68)
== END ==
PROVIDERS: PCP Family Medicine; Visit Provider Internal Medicine Cardiovascular Disease
DX: R09.89 Other specified symptoms and signs involving the circulatory and respiratory systems (principal); R00.2 Palpitations; R03.0 Elevated blood-pressure reading, without diagnosis of hypertension; R07.89 Other chest pain; E78.2 Mixed hyperlipidemia
CPT/HCPCS: 36415; 80048; 80061; 80076; 83735; 84443; 85025; 86140

== ENCOUNTER 2020-07-04 16:43 | Emergency (ER) | payer BC, SELFPAY ==
[2019-01-23 02:42] VITALS: BMI 31.6
[2020-07-04] VITALS (22 sets, daily range): BP systolic 105–150; BP diastolic 60–93; PULSE 68–115; RESP 10–33; TEMP 36.5–36.8; O2SAT 92–98
--- NOTE | 2020-07-04 | DI.CT.S_ITS ---
PROCEDURE: CT ABDOMEN PELVIS W CON INDICATIONS: SEVERE UPPER ABDOMINAL PAIN VENOUS PHASE TECHNIQUE: After the administration of intravenous contrast, 5 mm thick sections acquired from the diaphragm to the symphysis. 5 mm coronal and sagittal reformats were acquired. For radiation dose reduction, the following was used: automated exposure control, adjustment of mA and/or kV according to patient size. COMPARISON: [facility], CT, CT ABDOMEN PELVIS W CON, 04/23/2018, 18:44. FINDINGS: Image quality: Excellent. ABDOMEN: Lung bases: Lung bases are clear. Heart size is normal. There are innumerable and confluent hepatic lesions seen throughout the left and right lobes, in addition to portal vein thrombosis extending into the left and right branches. For example on image 14 series 11 in the dome this measures 8.9 x 10.0 cm. There are shotty subcentimeter gastrohepatic lymph nodes. Gallbladder demonstrates wall thickening . Biliary system is non dilated. Pancreas enhances normally. There is splenomegaly. No adrenal nodules. Kidneys demonstrate normal size and enhancement, without hydronephrosis. Simple appearing left renal cyst. Scattered ascites is present. There are numerous air-fluid levels within the small bowel loops Miscellaneous: No ventral hernias. PELVIS: Genitourinary: Bladder wall thickness is normal. Miscellaneous: No inguinal hernias or adenopathy. Bones: No suspicious bony lesions. No vertebral body compression fractures. IMPRESSION: Extensive and confluent hepatic lesions, with ill-defined margins, in addition to main portal vein, left and right portal vein bland or tumor thrombosis. Findings most concerning for cholangiocarcinoma, versus multifocal hepatoma. Metastatic disease is in the differential.Shotty subcentimeter gastrohepatic lymphadenopathy Age-indeterminate gallbladder wall thickening which could reflect acute or chronic cholecystitis, versus chronic liver disease Scattered air-fluid levels throughout multiple small bowel loops raising the possibility of reactive ileus versus developing bowel obstruction. No specific transition point seen at this time although if the patient's symptoms do not improve, continued surveillance with abdominal series radiographs could be performed. Mild ascites. Dictated by: Brad Anguiano M.D. on 07/04/2020 at 21:23 Approved by: Brad Anguiano M.D. on 07/04/2020 at 21:29
--- NOTE | 2020-07-04 17:57 | DI.RAD.S_ITS ---
PROCEDURE: XR CHEST 1V INDICATIONS: flu-like symptoms TECHNIQUE: One view of the chest was acquired. COMPARISON: [facility], CR, XR CHEST 1V, 01/22/2019, 22:38. FINDINGS: Surgical changes and devices: None. No pleural effusions or pneumothorax. Presumed scarring/atelectasis in the left costophrenic angle. No acute consolidation. Mediastinum: Mediastinal contours appear normal. Heart size is normal. Bones and chest wall: No suspicious bony lesions. Overlying soft tissues appear unremarkable. IMPRESSION: No acute consolidation Dictated by: Brad Anguiano M.D. on 07/04/2020 at 19:19 Approved by: Brad Anguiano M.D. on 07/04/2020 at 19:20
[2020-07-04 18:02] LABS: INR 1.5 (0.9-1.3); Prothrombin Time 16.6 SECONDS (10.1-12.7)
[2020-07-04 18:05] LABS: PTT Partial Thromboplastin Tim 34 SECONDS (26.4-36.2)
[2020-07-04] MEDS: SODIUM CHLORIDE 0.9% 1,000 ML 1000 ML IV ×2 (18:06→21:54)
[2020-07-04] MEDS: MORPHINE 4 MG/ML INJ IV ×2 (18:06→19:52)
[2020-07-04] MEDS: ONDANSETRON 4 MG/2 ML INJ IV (18:06)
[2020-07-04 18:09] LABS: Alanine Aminotransferase 91 IU/L (<50); Albumin 3.9 g/dL (3.5-5.0); Albumin Globulin Ratio 0.6 (1.0-2.8); Alkaline Phosphatase 558 U/L (38-126); Aspartate Aminotransferase 121 IU/L (17-59); BUN Creatinine Ratio 13.5 (6-22); Bilirubin Total 1.4 mg/dL (0.2-1.3); Blood Urea Nitrogen 13 mg/dL (9-20); Carbon Dioxide 20 mmol/L (22-32); Chloride 104 mmol/L (98-107); Estimated Glomerular Filt Rate > 60.0 mL/min (>60); Globulin 6.7 g/dL (1.7-4.1); Glucose 144 mg/dL (80-110); HEMOLYSIS < 15 (0-50); Lipase 135 U/L (23-300); Potassium 4.6 mmol/L (3.4-5.1); Sodium 135 mmol/L (137-145)
--- NOTE | 2020-07-04 18:10 | ED.ABDPAIN ---
HPI - Abdominal Pain General Chief Complaint: Abdominal Pain Stated Complaint: PAIN LIVER DIARRHEA THROWING UP Time Seen by Provider: 07/04/20 18:00 Source: patient Mode of arrival: Wheelchair Limitations: no limitations History of Present Illness HPI narrative: 65M non smoker with remote history of Hep C, diabetes, GERD presents with multiple complaints including fever, dry cough, nausea, severe epigastric pain and diarrhea for up to 2 weeks. He is fully immunized, denies recent travel, and has not been exposed to any persons with known coronavirus. He denies any change in his pain with eating and states it is worse with motion and improves with rest. He denies any dark and tarry stools or bright red blood. He has been seeing a GI provider from [place] and actually has an ultrasound ordered as an outpatient. He denies any surgical history on his abdomen and last had food/drink at 1200 MD complaint: abdominal pain Onset (ago): week(s) Pain Consistency: constant Location: RUQ and epigastric Quality: cramping and aching Radiation: none Relieving factors: rest Exacerbating factors: movement Associated symptoms: nausea, diarrhea and fever Related Data Home Medications Medication Instructions Recorded Confirmed omeprazole 20 mg PO QDAY #0 05/13/17 07/04/20 metformin 1,000 mg PO BID 04/29/18 07/04/20 prazosin 1 mg capsule 1 mg PO QAM #0 cap 04/07/19 07/04/20 prazosin 2 mg PO BEDTIME 07/04/20 07/04/20 Allergies Allergy/AdvReac Type Severity Reaction Status Date / Time hydrocodone [From VICODIN] AdvReac Unknown Verified 07/04/20 16:57 Review of Systems Constitutional Constitutional: Reports chills, Denies fatigue, Reports fever(s), Denies frequent falls, Reports lethargy and Denies weakness Eyes Eyes: Denies change in vision, Denies eye discharge, Denies irritation and Denies loss of vision ENT Ears, Nose, Mouth, and Throat: Denies change in voice, Denies dizziness, Denies neck pain, Denies sore throat and Denies throat swelling Cardiovascular Cardiovascular: Denies chest pain, Denies irregular heart rhythm, Denies lightheadedness, Denies palpitations, Denies dyspnea, Denies dyspnea on exertion and Denies orthopnea Respiratory Respiratory: Reports cough, Denies dyspnea, Denies dyspnea on exertion and Denies wheezing Gastrointestinal Gastrointestinal: Reports abdominal pain, Denies change in bowel habits, Reports diarrhea, Reports nausea and Denies vomiting Musculoskeletal Musculoskeletal: Denies neck pain and Denies numbness Integumentary/Breasts Skin/Breast: Denies pruritus, Denies erythema, Denies rash and Denies wounds Neurologic Neurologic: Denies behavioral changes, Denies confusion, Denies dizziness, Denies frequent falls, Denies loss of vision, Denies numbness and Denies weakness Psychiatric Psychiatric: Denies anxiety, Denies behavioral changes, Denies confusion, Denies depression, Denies homicidal ideation and Denies suicidal ideation Endocrine Endocrine: Denies fatigue, Denies flushing and Denies palpitations Hematologic/Lymphatic Hematologic/Lymphatic: Denies easy bruising Allergic/Immunologic Allergic/Immunologic: Denies urticaria, Denies throat swelling and Denies wheezing Patient History Family History Mother No known health problems Father No known health problems Social History household members: spouse Smoking Status: Never smoker alcohol intake: current Smoking Status: Never smoker alcohol intake frequency: a few times a week Substance Use Type: does not use Exam Narrative Exam Narrative: GENERAL: [65] year old patient appears stated age. Well-nourished, well-developed patient, in mild distress. Clearly feeling unwell HEAD: Atraumatic. Normocephalic. EYES: Pupils equal round and reactive. Extraocular motions intact. No scleral icterus. No injection or drainage. ENT: Nose without bleeding, purulent drainage. Throat without erythema, tonsillar hypertrophy or exudate. Airway patent. NECK: Trachea midline. Non tender CARDIOVASCULAR: Regular rate and rhythm without murmurs, gallops, or rubs. RESPIRATORY: Clear to auscultation. Breath sounds equal bilaterally. No wheezes, rales, or rhonchi. GASTROINTESTINAL: Abdomen soft, significant tenderness in epigastrium and right upper quadrant, nondistended. EXTREMITIES: No edema or joint tenderness. BACK: Nontender without deformity or crepitance. No flank tenderness. NEURO: AOx3. SKIN: No rash or erythema of visible areas Initial Vital Signs Initial Vital Signs: Vital Signs Temperature 98.3 F 07/04/20 16:51 Pulse Rate 115 H 07/04/20 16:51 Respiratory Rate 18 07/04/20 16:51 Blood Pressure 136/80 07/04/20 16:51 Pulse Oximetry 98 07/04/20 16:51 Course Course Course Narrative: MELD Score (Model For End-Stage Liver Disease) (12 and older) from [facility] on 07/04/2020 All calculations should be rechecked by clinician prior to use RESULT SUMMARY: 14 points MELD Score (2016)* 6.0% Estimated 3-Month Mortality INPUTS: Dialysis at least twice in the past week ?> 0 = No Creatinine ?> 0.96 mg/dL Bilirubin ?> 1.4 mg/dL INR ?> 1.5 Sodium ?> 135 mEq/L Orders Ordered: ED Orders 07/04/20 18:23 US abdomen complete Stat 07/04/20 18:55 Blood Culture Stat 07/04/20 19:46 CT angio chest abdomen pelvis Stat 07/04/20 20:42 Urine Microscopic Stat Heparin Sodium/Dextrose (Heparin Drip) 25,000 unit in 500 mls @ 33.965 mls/hr IV CONT KERVIN; Protocol Last Admin: 07/05/20 00:33 Dose: 18 units/kg/hr, 33.965 mls/hr Documented by: PRUDENCIO Discontinued Medications Heparin Sodium (Porcine) (Heparin) 7,500 unit 80 unit/kg (7500 unit) IV NOW ONE Stop: 07/04/20 23:40 Last Admin: 07/05/20 00:33 Dose: 7,500 unit Documented by: PRUDENCIO Hydromorphone HCl (Dilaudid) 0.5 mg IV NOW ONE Stop: 07/04/20 21:39 Last Admin: 07/04/20 21:54 Dose: 0.5 mg Documented by: EMRE Hydromorphone HCl (Dilaudid) 0.5 mg IV NOW ONE Stop: 07/04/20 23:14 Last Admin: 07/04/20 23:18 Dose: 0.5 mg Documented by: EMRE Hydromorphone HCl (Dilaudid) 0.5 mg IV NOW ONE Stop: 07/05/20 00:25 Last Admin: 07/05/20 00:31 Dose: 0.5 mg Documented by: PRUDENCIO Sodium Chloride (Normal Saline 0.9%) 1,000 mls @ 1,000 mls/hr IV BOLUS ONE Stop: 07/04/20 18:57 Last Infusion: 07/04/20 19:52 Dose: 0 mls/hr Documented by: Admin: 07/04/20 18:06 Dose: 1,000 mls/hr Documented by: MARILEE Sodium Chloride (Normal Saline 0.9%) 1,000 mls @ 1,000 mls/hr IV BOLUS ONE Stop: 07/04/20 22:37 Last Infusion: 07/04/20 23:03 Dose: 0 mls/hr Documented by: Admin: 07/04/20 21:54 Dose: 1,000 mls/hr Documented by: EMRE Piperacillin/Tazobactam/Dextrose (Zosyn) 3.375 gm in 50 mls @ 100 mls/hr IV NOW ONE Stop: 07/04/20 22:16 Last Infusion: 07/04/20 22:44 Dose: 0 mls/hr Documented by: Admin: 07/04/20 22:01 Dose: 100 mls/hr Documented by: EMRE Morphine Sulfate (Morphine) 4 mg IV NOW ONE Stop: 07/04/20 18:00 Last Admin: 07/04/20 18:06 Dose: 4 mg Documented by: MARILEE Morphine Sulfate (Morphine) 4 mg IV NOW ONE Stop: 07/04/20 19:37 Last Admin: 07/04/20 19:52 Dose: 4 mg Documented by: EMRE Ondansetron HCl (Zofran) 4 mg IV NOW ONE Stop: 07/04/20 17:00 Last Admin: 07/04/20 18:06 Dose: 4 mg Documented by: MARILEE Consultations Consultation #1: discussion with Dr. Schaffer, who recommends transfer to tertiary care center given high likelihood of complexity of underlying illness Consultation #2: initial call to [facility]. No beds next call to [facility], no beds call to . Discussion with hospitalist, Dr. Olivas, who is happy to accept. Agrees with plan, including heparin and ABX. Vital Signs Vital signs: Vital Signs - 8 hr 07/04/20 19:15 07/04/20 19:30 07/04/20 19:45 Temperature Pulse Rate 72 74 69 Respiratory Rate 13 21 21 Blood Pressure 121/75 132/81 131/77 Pulse Oximetry 93 96 97 07/04/20 20:00 07/04/20 20:15 07/04/20 20:59 Temperature Pulse Rate 72 73 75 Respiratory Rate 19 19 33 H Blood Pressure 124/74 130/83 Pulse Oximetry 94 94 95 07/04/20 21:00 07/04/20 21:30 07/04/20 21:48 Temperature Pulse Rate 74 68 78 Respiratory Rate 25 H 13 10 L Blood Pressure 140/89 Pulse Oximetry 96 93 94 07/04/20 22:00 07/04/20 22:15 07/04/20 22:30 Temperature Pulse Rate 77 71 69 Respiratory Rate 21 19 15 Blood Pressure 150/93 H 137/79 134/81 Pulse Oximetry 96 95 94 07/04/20 22:45 07/04/20 22:46 07/04/20 23:00 Temperature 97.7 F Pulse Rate 69 80 71 Respiratory Rate 11 L 23 14 Blood Pressure 141/84 H 105/60 135/83 Pulse Oximetry 92 96 94 07/04/20 23:30 07/05/20 00:00 07/05/20 00:30 Temperature Pulse Rate 68 69 67 Respiratory Rate 16 19 22 Blood Pressure Pulse Oximetry 94 95 94 07/05/20 00:31 Temperature 98.1 F Pulse Rate 69 Respiratory Rate 17 Blood Pressure 137/80 Pulse Oximetry 95 MDM - Abdominal Pain Lab Data Result diagrams: 07/04/20 17:47 07/04/20 17:47 Labs: Lab Results 07/04/20 07/04/20 07/04/20 Range/Units 17:47 17:47 17:47 WBC 10.3 (4.5-11.0) X10^3/uL RBC 3.93 L (4.5-5.9) X10^6/uL Hgb 11.6 L (13.5-17.5) g/dL Hct 35.5 L (41-53) % MCV 90.3 (80-100) fL MCH 29.5 (26-34) PG MCHC 32.7 (30-36) % RDW 15.6 H (11.6-14.8) % Plt Count 197 (150-400) X10^3/uL Neut % (Auto) 76.9 H (50-75) % Lymph % (Auto) 15.4 L (25-40) % [place] % (Auto) 6.4 (3-14) % Eos % (Auto) 0.4 L (2-4) % Baso % (Auto) 0.9 (0-2) % Neut # (Auto) 8000 H (2524-9096) /uL Lymph # (Auto) 1600 (3254-4787) /uL [place] # (Auto) 700 (0-900) /uL Eos # (Auto) 0 (0-450) /uL Baso # (Auto) 100 (0-100) /uL PT 16.6 H (10.1-12.7) SECONDS INR 1.5 H (0.9-1.3) APTT 34 D (26.4-36.2) SECONDS D-Dimer (<230) ng/mL Sodium 135 L (137-145) mmol/L Potassium 4.6 (3.4-5.1) mmol/L Chloride 104 (98-107) mmol/L Carbon Dioxide 20 L (22-32) mmol/L BUN 13 (9-20) mg/dL Creatinine 0.96 (0.66-1.25) mg/dL Estimated GFR > 60.0 (>60) mL/min BUN/Creatinine Ratio 13.5 (6-22) Glucose 144 H (80-110) mg/dL Lactate (0.7-2.1) mmol/L Calcium 10.0 (8.4-10.2) mg/dL Ferritin (18-464) ng/mL Total Bilirubin 1.4 H (0.2-1.3) mg/dL AST 121 H (17-59) IU/L ALT 91 H (<50) IU/L Alkaline Phosphatase 558 H (38-126) U/L Lactate Dehydrogenase (313-618) U/L Total Creatine Kinase (55-170) U/L CK-MB (CK-2) CK-MB (CK-2) Rel Index Troponin I (0.01-0.034) ng/mL C-Reactive Protein (<1.0) mg/dL NT-Pro-B Natriuret Pep (<125) pg/mL Total Protein 10.6 H* (6.3-8.2) g/dL Albumin 3.9 (3.5-5.0) g/dL Globulin 6.7 H (1.7-4.1) g/dL Albumin/Globulin Ratio 0.6 L (1.0-2.8) Lipase 135 (23-300) U/L Urine RBC (0-5/HPF) Urine WBC (0-5/HPF) Ur Squamous Epith Cells (0-5/HPF) Urine Bacteria (None) Ur Culture Indicated? COVID-19 PCR (Negative) 07/04/20 07/04/20 07/04/20 Range/Units 17:47 17:47 17:47 WBC (4.5-11.0) X10^3/uL RBC (4.5-5.9) X10^6/uL Hgb (13.5-17.5) g/dL Hct (41-53) % MCV (80-100) fL MCH (26-34) PG MCHC (30-36) % RDW (11.6-14.8) % Plt Count (150-400) X10^3/uL Neut % (Auto) (50-75) % Lymph % (Auto) (25-40) % [place] % (Auto) (3-14) % Eos % (Auto) (2-4) % Baso % (Auto) (0-2) % Neut # (Auto) (6091-6326) /uL Lymph # (Auto) (5351-2638) /uL [place] # (Auto) (0-900) /uL Eos # (Auto) (0-450) /uL Baso # (Auto) (0-100) /uL PT (10.1-12.7) SECONDS INR (0.9-1.3) APTT (26.4-36.2) SECONDS D-Dimer 5949 H (<230) ng/mL Sodium (137-145) mmol/L Potassium (3.4-5.1) mmol/L Chloride (98-107) mmol/L Carbon Dioxide (22-32) mmol/L BUN (9-20) mg/dL Creatinine (0.66-1.25) mg/dL Estimated GFR (>60) mL/min BUN/Creatinine Ratio (6-22) Glucose (80-110) mg/dL Lactate 1.3 (0.7-2.1) mmol/L Calcium (8.4-10.2) mg/dL Ferritin 280 (18-464) ng/mL Total Bilirubin (0.2-1.3) mg/dL AST (17-59) IU/L ALT (<50) IU/L Alkaline Phosphatase (38-126) U/L Lactate Dehydrogenase 502 (313-618) U/L Total Creatine Kinase 44 L (55-170) U/L CK-MB (CK-2) TNP CK-MB (CK-2) Rel Index TNP Troponin I < 0.012 (0.01-0.034) ng/mL C-Reactive Protein 5.2 H (<1.0) mg/dL NT-Pro-B Natriuret Pep 194 H (<125) pg/mL Total Protein (6.3-8.2) g/dL Albumin (3.5-5.0) g/dL Globulin (1.7-4.1) g/dL Albumin/Globulin Ratio (1.0-2.8) Lipase (23-300) U/L Urine RBC (0-5/HPF) Urine WBC (0-5/HPF) Ur Squamous Epith Cells (0-5/HPF) Urine Bacteria (None) Ur Culture Indicated? COVID-19 PCR (Negative) 07/04/20 07/04/20 Range/Units 18:10 20:42 WBC (4.5-11.0) X10^3/uL RBC (4.5-5.9) X10^6/uL Hgb (13.5-17.5) g/dL Hct (41-53) % MCV (80-100) fL MCH (26-34) PG MCHC (30-36) % RDW (11.6-14.8) % Plt Count (150-400) X10^3/uL Neut % (Auto) (50-75) % Lymph % (Auto) (25-40) % [place] % (Auto) (3-14) % Eos % (Auto) (2-4) % Baso % (Auto) (0-2) % Neut # (Auto) (2627-5174) /uL Lymph # (Auto) (5590-3194) /uL [place] # (Auto) (0-900) /uL Eos # (Auto) (0-450) /uL Baso # (Auto) (0-100) /uL PT (10.1-12.7) SECONDS INR (0.9-1.3) APTT (26.4-36.2) SECONDS D-Dimer (<230) ng/mL Sodium (137-145) mmol/L Potassium (3.4-5.1) mmol/L Chloride (98-107) mmol/L Carbon Dioxide (22-32) mmol/L BUN (9-20) mg/dL Creatinine (0.66-1.25) mg/dL Estimated GFR (>60) mL/min BUN/Creatinine Ratio (6-22) Glucose (80-110) mg/dL Lactate (0.7-2.1) mmol/L Calcium (8.4-10.2) mg/dL Ferritin (18-464) ng/mL Total Bilirubin (0.2-1.3) mg/dL AST (17-59) IU/L ALT (<50) IU/L Alkaline Phosphatase (38-126) U/L Lactate Dehydrogenase (313-618) U/L Total Creatine Kinase (55-170) U/L CK-MB (CK-2) CK-MB (CK-2) Rel Index Troponin I (0.01-0.034) ng/mL C-Reactive Protein (<1.0) mg/dL NT-Pro-B Natriuret Pep (<125) pg/mL Total Protein (6.3-8.2) g/dL Albumin (3.5-5.0) g/dL Globulin (1.7-4.1) g/dL Albumin/Globulin Ratio (1.0-2.8) Lipase (23-300) U/L Urine RBC None seen (0-5/HPF) Urine WBC 0-1/hpf (0-5/HPF) Ur Squamous Epith Cells 0-1 /hpf (0-5/HPF) Urine Bacteria None seen (None) Ur Culture Indicated? Cult not indicated COVID-19 PCR Negative (Negative) Point of care testing: Urine Dip Bedside Urine Glucose Negative Bedside Urine Bilirubin - Negative Bedside Urine Ketone +/- 5 Urine Specific [place] 1.015 Bedside Urine Occult Blood - Negative Bedside Urine pH 6.0 Bedside Urine Protein +/- 15 Bedside Urine Urobilinogen - Negative Bedside Urine Nitrite - Negative Bedside Urine Leukocytes - Negative Esterase Imaging Data CT scan - abdomen/pelvis: Radiologist's Impression: [address] [address] Ultrasound Report Signed Patient: Armin Martinez WMR#: [id number] : 7Acct:[id number] Age/Sex: 65 / MDate of Service: 07/04/20 Loc: ED Accession Number: [id number] Procedure: US abdomen complete Ordering Provider: Jose D Hutchinson D.O. PROCEDURE: US ABDOMEN COMPLETE INDICATIONS: SEVERE ABDOMINAL PAIN ABNORMAL LABS TECHNIQUE: Real-time scanning was performed of the abdominal and retroperitoneal organs, with image documentation. COMPARISON: [facility], CT, CT ANGIO CHEST PE, 06/09/2019, 15:18. [facility], CT, CT ABDOMEN PELVIS WITH CONTRAST, 05/11/2019, 14:32. [facility], US, ABDOMEN COMPLETE, 11/15/2015, 1:25. FINDINGS: There are multiple heterogeneous masses within the liver measuring up to 7.2 x 5.3 x 7.6 cm. Liver measures 18.3 cm in length. There is thrombosis present within the main portal vein, and some reversal of flow in the left portal vein Gallbladder: Gallbladder wall thickening is seen measuring 7 mm. No definite cholelithiasis. Biliary ducts: Intrahepatic bile ducts are seen. Extrahepatic bile ducts are not well visualized. Pancreas: Obscured by body habitus/bowel gas. Spleen is enlarged measuring 15.2 cm in length. Kidneys: Right kidney not well seen. Left kidney measures 11.8 cm long. No hydronephrosis or nephrolithiasis. No solid masses. Left renal cyst measuring up to 2.7 cm. Aorta: Visualized aorta is normal in caliber at less than 3 cm. Iliacs: Not well visualized due to shadowing bowel gas or body habitus. IVC: Intrahepatic inferior vena cava is not well seen. Miscellaneous: No free abdominal fluid. IMPRESSION: Heterogeneous poorly defined liver mass, or confluent masses measuring up to 7.6 cm in aggregate. Cannot exclude neoplasm. Recommend further evaluation with dedicated liver protocol contrast-enhanced MRI in the nonemergent setting. Gallbladder wall thickening however this finding technically age indeterminate. The actual etiology is unknown. Please correlate clinically and with LFTs to exclude acute cholecystitis. Markedly suboptimal examination as above. Critical Care Time Critical Care Time Critical Care Time: Yes Total Critical Care Time: 45 Attestation: The high probability of a clinically significant, sudden or life threatening deterioration of the [CV/GI] system(s) required my full and direct attention, intervention and personal management. The aggregate critical care time was [45] minutes. This time is in addition to time spent performing reported procedures but includes the following: [x] Data Review and interpretation [x] Patient assessment and monitoring of vital signs x] Documentation [x] Medication orders and management Discharge Plan Departure Patient Disposition: [facility] Clinical Impression: Portal vein thrombosis, Liver mass, Acute cholecystitis Prescriptions: No Action omeprazole 20 MG capsule,delayed release(DR/EC) 20 mg PO QDAY Qty: 0 RF: 0 prazosin 1 mg capsule 1 mg PO QAM Qty: 0 RF: 0 metformin 1,000 mg tablet 1,000 mg PO BID RF: 0 prazosin 2 mg capsule 2 mg PO BEDTIME RF: 0 Referrals: Joleen Alcaraz MD [Primary Care Provider] -
[2020-07-04 18:12] LABS: Add Manual Diff / Slide Review NO; Basophils Absolute Auto 100 /uL (0-100); Basophils Percent Auto 0.9 % (0-2); Eosinophils Absolute Auto 0 /uL (0-450); Eosinophils Percent Auto 0.4 % (2-4); Hematocrit 35.5 % (41-53); Hemoglobin 11.6 g/dL (13.5-17.5); Lymphocytes Absolute Auto 1600 /uL (1100-4500); Lymphocytes Percent Auto 15.4 % (25-40); Mean Corpuscular HGB Conc 32.7 % (30-36); Mean Corpuscular Hemoglobin 29.5 PG (26-34); Mean Corpuscular Volume 90.3 fL (80-100); Monocytes Absolute Auto 700 /uL (0-900); Monocytes Percent Auto 6.4 % (3-14); Neutrophils Absolute Auto 8000 /uL (1500-7000); Neutrophils Percent Auto 76.9 % (50-75); Platelet Count 197 X10^3/uL (150-400); Red Blood Cell Count 3.93 X10^6/uL (4.5-5.9); Red Cell Distribution Width 15.6 % (11.6-14.8); White Blood Cell Count 10.3 X10^3/uL (4.5-11.0)
--- NOTE | 2020-07-04 18:23 | DI.US.S_ITS ---
PROCEDURE: US ABDOMEN COMPLETE INDICATIONS: SEVERE ABDOMINAL PAIN ABNORMAL LABS TECHNIQUE: Real-time scanning was performed of the abdominal and retroperitoneal organs, with image documentation. COMPARISON: [facility], CT, CT ANGIO CHEST PE, 06/09/2019, 15:18. [facility], CT, CT ABDOMEN PELVIS WITH CONTRAST, 05/11/2019, 14:32. [facility], US, ABDOMEN COMPLETE, 11/15/2015, 1:25. FINDINGS: There are multiple heterogeneous masses within the liver measuring up to 7.2 x 5.3 x 7.6 cm. Liver measures 18.3 cm in length. There is thrombosis present within the main portal vein, and some reversal of flow in the left portal vein Gallbladder: Gallbladder wall thickening is seen measuring 7 mm. No definite cholelithiasis. Biliary ducts: Intrahepatic bile ducts are seen. Extrahepatic bile ducts are not well visualized. Pancreas: Obscured by body habitus/bowel gas. Spleen is enlarged measuring 15.2 cm in length. Kidneys: Right kidney not well seen. Left kidney measures 11.8 cm long. No hydronephrosis or nephrolithiasis. No solid masses. Left renal cyst measuring up to 2.7 cm. Aorta: Visualized aorta is normal in caliber at less than 3 cm. Iliacs: Not well visualized due to shadowing bowel gas or body habitus. IVC: Intrahepatic inferior vena cava is not well seen. Miscellaneous: No free abdominal fluid. IMPRESSION: Heterogeneous poorly defined liver mass, or confluent masses measuring up to 7.6 cm in aggregate. Cannot exclude neoplasm. Recommend further evaluation with dedicated liver protocol contrast-enhanced MRI in the nonemergent setting. Gallbladder wall thickening however this finding technically age indeterminate. The actual etiology is unknown. Please correlate clinically and with LFTs to exclude acute cholecystitis. Markedly suboptimal examination as above. Dictated by: Brad Anguiano M.D. on 07/04/2020 at 20:05 Approved by: Brad Anguiano M.D. on 07/04/2020 at 20:11
[2020-07-04 18:27] LABS: Total Protein 10.6 g/dL (6.3-8.2)
[2020-07-04 18:42] LABS: Lactate (Lactic Acid) 1.3 mmol/L (0.7-2.1)
[2020-07-04 18:46] LABS: C-Reactive Protein Quant 5.2 mg/dL (<1.0); Creatine Kinase 44 U/L (55-170); Lactate Dehydrogenase 502 U/L (313-618)
[2020-07-04 18:55] LABS: NT-proBNP (BNP-Adult 18+) 194 pg/mL (<125); Troponin I < 0.012 ng/mL (0.01-0.034)
[2020-07-04 19:18] LABS: Ferritin 280 ng/mL (18-464)
[2020-07-04 19:22] LABS: D Dimer 5949 ng/mL (<230)
[2020-07-04 19:27] LABS: COVID19 -Nasal RAPID Negative (Negative)
--- NOTE | 2020-07-04 19:46 | DI.CT.S_ITS ---
PROCEDURE: CT ANGIO CHEST ABDOMEN PELVIS INDICATIONS: severe upper abdominal pain, question mets and vascular invo TECHNIQUE: Precontrast 5 mm thick sections acquired from the lung apices to the iliac crests. After the administration of intravenous contrast, 2.5 mm thick sections again acquired from the lung apices to the iliac crests. Maximum intensity projection (MIP) oblique sagittal and coronal reformats were then acquired. For radiation dose reduction, the following was used: automated exposure control. COMPARISON: [facility], CT, CT ABDOMEN PELVIS W CON, 07/04/2020, 20:38. [facility], CT, CT ABDOMEN PELVIS WITH CONTRAST, 05/11/2019, 14:32. [facility], CT, ANGIO CHEST ABDOMEN PELVIS, 02/01/2017, 13:45. FINDINGS: Image quality: Excellent. AORTA: No evidence of aortic dissection or aneurysm. No periaortic hemorrhage is seen. Scattered vascular calcifications noted in the aorta. The renal arteries appear patent. The mesenteric arteries appear patent. CHEST: Lungs and pleura: No acute airspace opacities. No pleural effusions or pneumothorax. Central and peripheral airways are patent and normal in caliber. Mediastinum: Heart size is normal. Coronary artery calcifications are present. No pericardial effusion. No mediastinal or hilar adenopathy by size criteria. Central pulmonary arteries are normal in size. Esophagus is normal in caliber. No hiatal hernias. Bones and chest wall: No axillary adenopathy by size criteria. Thyroid gland unremarkable . No suspicious bony lesions. No vertebral body compression fractures. ABDOMEN: Vasculature: Celiac trunk and mesenteric arteries are patent. Renal arteries are also patent. Thrombosis of the main portal vein is seen with partial cavernous transformation. There is cirrhotic appearance to the hepatic contour. Ill-defined hypo attenuating focus is seen within the hepatic dome measuring approximately 4-5 cm diameter. There are others areas of heterogeneous appearance of the liver suggestive of infiltrative confluent disease Gallbladder demonstrates wall thickening however this is a age indeterminate finding. . Biliary system is non dilated. Pancreas enhances normally. Spleen is normal in size and enhancement. No adrenal nodules. Both kidneys are normal in size and enhancement, without hydronephrosis. Scattered ascites is seen. No free air identified. There are air-fluid levels in several bowel loops. Rectum contains gas and fluid. [place] lymph nodes seen in the gastrohepatic ligament. Simple appearing left renal cyst Miscellaneous: No ventral hernias. PELVIS: Genitourinary: Bladder wall thickness is normal. Miscellaneous: No inguinal hernias or adenopathy. No ventral hernias. Bones: No suspicious bony lesions. No vertebral body compression fractures. IMPRESSION: No evidence of aortic dissection or aneurysm Extensive hepatic lesions as detailed on the comparison CT abdomen pelvis dated same day. Thrombosis of the main portal vein, extending into the left and right portal veins. Scattered ascites Dictated by: Brad Anguiano M.D. on 07/04/2020 at 21:17 Approved by: Brad Anguiano M.D. on 07/04/2020 at 21:23
[2020-07-04 20:59] LABS: Bacteria Urine None Seen; RBC Urine None Seen (0-5/HPF)
[2020-07-04 21:18] LABS: Culture Indicated Urine Cult Not Indicated; Squamous Epithelial Cell Urine 0-1 /HPF (0-5/HPF); WBC Urine 0-1/HPF (0-5/HPF)
[2020-07-04] MEDS: HYDROMORPHONE 0.5 MG INJ IV ×2 (21:54→23:18)
[2020-07-04] MEDS: PIPERACILLIN-TAZO 3.375 GM/50 ML FROZ.PIGGY IV (22:01)
[2020-07-05] VITALS: PULSE 69; RESP 19; O2SAT 95
[2020-07-05 00:30] VITALS: PULSE 67; RESP 22; O2SAT 94
[2020-07-05 00:31] VITALS: BP 137/80; PULSE 69; RESP 17; TEMP 36.7; O2SAT 95
[2020-07-05] MEDS: HYDROMORPHONE 0.5 MG INJ IV (00:31)
[2020-07-05] MEDS: HEPARIN DRIP 25,000 UNIT/500 ML IV.SOLN 33.965 UNIT IV (00:33)
[2020-07-05] MEDS: HEPARIN 5,000 UNIT/ML VIAL 7500 UNIT IV (00:33)
--- NOTE | 2020-07-05 02:08 | PC.NURSE ---
Report called to [facility] [phone]
--- NOTE | 2020-08-02 02:13 | PC.NURSE ---
Late entry Heparin gtt stop time 07/05/2020 at 0040
== END 2020-07-05 00:41 | disposition short-term general hospital (02) ==
PROVIDERS: Emergency Medicine; Emergency Provider Emergency Medicine; PCP Family Medicine
DX: I81 Portal vein thrombosis (principal); R16.0 Hepatomegaly, not elsewhere classified; K81.0 Acute cholecystitis; R50.9 Fever, unspecified; R05 Cough; R19.7 Diarrhea, unspecified
CPT/HCPCS: 36415; 71045; 71275; 74174; 74177; 76700; 80053; 81003; 81015; 82550; 82728; 83605; 83615; 83690; 83880; 84484; 85025; 85379; 85610; 85730; 86140; 87040; 87635; 93005; 96361; 96365; 96375; 96376; 99285; 99291; J1170; J1644; J2270; J2405; J2543; Q9967